=== PATIENT | male | born 1955 | race Caucasian/White ===

== ENCOUNTER → 2023-12-23 07:37 | Outpatient (REF) | payer OTHER, SELFPAY | LOC: DHCBC/DCA 07:37 | PROVIDERS: ATTENDING PHYSICIAN Internal Medicine Cardiovascular Disease; FAMILY PHYSICIAN Family Medicine | DX: I48.91 Unspecified atrial fibrillation (principal); R07.9 Chest pain, unspecified | CPT/HCPCS: 78452; 93017; A9500; J2785 ==

== ENCOUNTER → 2023-12-25 10:01 | Outpatient (REF) | payer OTHER, SELFPAY | LOC: RCS 10:01 | PROVIDERS: ATTENDING PHYSICIAN Internal Medicine Cardiovascular Disease; FAMILY PHYSICIAN Family Medicine | DX: I48.91 Unspecified atrial fibrillation (principal) | CPT/HCPCS: 93306 ==

== ENCOUNTER → 2024-04-30 08:41 | Outpatient (REF) | payer OTHER, SELFPAY | LOC: RAD 08:41 | PROVIDERS: ATTENDING PHYSICIAN Internal Medicine Cardiovascular Disease; FAMILY PHYSICIAN Family Medicine | DX: Z86.73 Personal history of transient ischemic attack (TIA), and cerebral infarction without residual deficits (principal) | CPT/HCPCS: 93880 ==

== ENCOUNTER 2025-02-03 09:01 | Day surgery (SDC) | payer OTHER, SELFPAY ==
[2025-02-03] VITALS (17 sets, daily range): BP systolic 118–147; BP diastolic 73–101; BMI 27.2
--- NOTE | 2025-02-03 10:33 | PTCARENOTE ---
ASA 81mg x2 (162mg) PO given at 1000 pre-procedure by this nurse.
--- NOTE | 2025-02-03 10:36 | PTCARENOTE ---
Aspirin 81mg x2 (162mg) PO given pre procedure by this nurse.
--- NOTE | 2025-02-03 11:12 | ITS.CL.CATH ---
Consumer Sales Representative - Catheterization
Cardiac Catheterization
Procedure Report:
LEFT HEART CATHETERIZATION
Date of Procedure: February 03, 2025
Referring: Fanny Payne.
PROCEDURES:
1. Left heart catheterization, coronary angiogram.
2. Moderate sedation.
INDICATION: Concern for unstable angina
ACCESS: Right radial artery, 6Fr. sheath, under US guidance.
HEMODYNAMICS : (mmHg)
AO (s/d) : 120/70
LVEDP : 16
No significant gradient across the aortic valve to suggest aortic stenosis.
CORONARY FINDINGS
Dominance: Right
Left Main Trunk (LMT): Large caliber vessel that gives rise to the LAD and LCx branches and is free of angiographic disease.
Left Anterior Descending Artery (LAD): Large caliber vessel that gives off 2 major diagonal branches as it courses along the anterior inter-ventricular groove before wrapping around the cardiac apex. There is mild diffuse atherosclerotic plaque in
the midportion. Otherwise there is minimal luminal irregularities.
Left Circumflex Artery (LCx): Large caliber vessel that gives off 2 major obtuse marginal (OM) branches as it courses along the atrio-ventricular (AV) groove. The LCx and its branches are free of angiographic disease.
Right Coronary Artery (RCA): Large caliber dominant vessel that gives rise to the posterior descending artery (RPDA) and postero-lateral ventricular (RPLV) branches distally. There is mild diffuse atherosclerotic plaque.
SEDATION: 17 minutes of procedural sedation was utilized. IV Midazolam and IV Fentanyl were administered. An independent medical laboratory manager was present to assist with and help manage the patient's level of consciousness and physiologic status.
RADIATION SUMMARY: Fluoro Time (min): 2.1, Dose (mGy): 287.26, DAP (Gy.cm2) : 19.9
Closure Device: There were no immediate intra-procedural complications. The sheath was pulled in the irrigation laborer and a vascular-band applied to the right wrist for radial artery hemostasis using the patent hemostasis technique.
CONCLUSIONS
1. No obstructive coronary artery disease.
2. LVEDP is 16mmHg.
RECOMMENDATIONS
1. Wean radial band per protocol. Monitor right hand perfusion and for bleeding from the radial site following removal of the vascular-band following trans-radial access.
2. Continue aggressive medical therapy and risk factor modification for secondary CAD prevention.
3. Hydrate with normal saline to mitigate the risk of contrast-induced acute kidney injury.
4. Follow-up with Dr. Hailee Rubio.
Luz Cordova MD, [facility], [facility]
Copy to: Fanny Payne.
== END 2025-02-03 14:10 | disposition home or self-care (01) ==
LOC: CATH 09:01
PROVIDERS: ATTENDING PHYSICIAN Internal Medicine Interventional Cardiology; FAMILY PHYSICIAN Neurological Surgery; OTHER PHYSICIAN Internal Medicine Cardiovascular Disease
DX: I25.10 Atherosclerotic heart disease of native coronary artery without angina pectoris (principal); Z86.73 Personal history of transient ischemic attack (TIA), and cerebral infarction without residual deficits; Z79.01 Long term (current) use of anticoagulants; Z79.899 Other long term (current) drug therapy; I48.19 Other persistent atrial fibrillation; Q21.12 Patent foramen ovale; E78.5 Hyperlipidemia, unspecified; I70.0 Atherosclerosis of aorta
CPT/HCPCS: 99152; 93458; C1894; Q9967

== ENCOUNTER 2025-02-26 10:39 | Inpatient (IN) | payer OTHER, SELFPAY ==
[2025-02-25 12:53] VITALS: BP 155/94
[2025-02-25 13:55] VITALS: BMI 26.0
[2025-02-25 14:20] VITALS: BP 135/94
--- NOTE | 2025-02-25 14:31 | ED.SKININJ ---
HPI-Injury
General
Chief Complaint: Skin Problem
Time Seen by Provider: 02/25/25 14:23
History of Present Illness-Injury
Initial Injury comments:
69-year-old male with past medical history of atrial fibrillation and hypertension here today for a suspected skin infection along his left lower extremity. He reports approximately 5 to 6 days of pain, redness, and swelling along his distal left
lower extremity. Symptoms started after the patient was walking in the park. He believes he was either bit by something or brushed up against something that caused the above symptoms. He has had associated redness, swelling, and pain. No fevers.
No drainage. He is not diabetic.
Past History
Past History
ED Past Medical History: CVA and Other
ED Past Surgical History: Orthopedic and Tonsilectomy
Social History
Tobacco: Former smoker
Alcohol: None
Personal:
Living: with family
Family History
Family History: Other
Review of Systems
Review of Systems
All Other Systems: ROS reviewed and negative except as documented in HPI and ROS
Phy Exam
Physical Exam
Physical Exam:
GENERAL: Alert , in no apparent distress
EYE: pupils equal and reactive
NECK: Supple
SKIN: Warm and dry, skin intact. moderate amount of swelling, erythema, and tenderness noted along the distal left lower extremity
MUSCULOSKELETAL: No edema, well perfused.
PSYCH: Normal and appropriate interaction.
Sepsis
Sepsis Screening
Sepsis Assessment: Sepsis Ruled Out
Sepsis Screen
Sepsis Screen: Sepsis Ruled Out
Date: 02/25/25
Time: 16:20
Course
Orders/Labs/Results
Orders:
Orders
02/25/25 14:30
CR Leg Tibia/fibula Left 2 Vw Urgent
Comment:
Reason For Exam: cellulitis
02/25/25 14:48
Basic Metabolic Panel Urgent
CRP [C-Reactive Protein] Urgent
Complete Blood Count/With Diff Urgent
ESR [Erythrocyte Sed Rate] Urgent
Lactic Acid Urgent
02/25/25 16:14
Vancomycin [Vancocin] 2,000 mg 0.9% Sodium Chloride 500 ml [Nss] 500 ml IV NOW
Abnormal Lab Results
02/25/25
14:48
WBC 15.4 H 10^3/uL
(4.8-10.8)
RBC 4.21 L 10^6/uL
(4.70-6.10)
Hgb 12.9 L g/dL
(13.0-18.0)
Hct 38.8 L %
(39.0-52.0)
Abs Immat Gran (auto) 0.1 H 10^3/uL
(0-0.05)
Absolute Neuts (auto) 12.6 H 10^3/uL
(1.4-6.5)
Absolute Lymphs (auto) 0.9 L 10^3/uL
(1.2-3.4)
Absolute Monos (auto) 1.7 H 10^3/uL
(0.1-0.6)
Neutrophils % 82.0 H %
(42.2-75.2)
Lymphocytes % 5.9 L %
(20.5-51.1)
Monocytes % 11.0 H %
(1.7-9.3)
C-Reactive Protein 157.20 H mg/L
(0.0-10.00)
02/25/25 14:48
02/25/25 14:48
Vital Signs
Initial and Last Documented VS:
Initial Vital Signs
Temp Pulse Resp BP Pulse Ox
97.8 F 86 16 155/94 98
02/25/25 12:53 02/25/25 12:53 02/25/25 12:53 02/25/25 12:53 02/25/25 12:53
Last Documented Vital Signs
Temp Pulse Resp BP Pulse Ox
97.8 F 84 16 135/94 97
02/25/25 12:53 02/25/25 14:00 02/25/25 14:00 02/25/25 14:20 02/25/25 14:33
MDM/Problems Addressed
Differential Diagnosis Includes:
69-year-old male with past medical history of atrial fibrillation and hypertension here today for a suspected skin infection along his left lower extremity. Overall, patient appears well. Vitals remarkable for an elevated blood pressure. Physical
examination described above. On examination the patient has a moderate amount of swelling, erythema, and tenderness noted along the distal left lower extremity. Symptoms originate around the location of the foot and extend up to the mid calf.
Patient's pulses are not palpable however are dopplerable. There is no pain out of proportion to physical exam findings. There is edema that is pitting in nature noted. Compartments are soft throughout. Sensation and motor intact throughout. I
am concerned for infection given findings and symptoms. Will initiate workup.
02/25/2025 16:18: Screening labs reveal leukocytosis to 15.4. There is anemia with a hemoglobin of 12.9. There is elevation in CRP. X-ray negative aside from swelling. Findings consistent with cellulitis. Given age and extent of infection will
initiate antibiotic therapy with vancomycin. Plan for admission.
*Pulse Oximetry
SaO2: 97
Oxygen Mode of Delivery: Room air
Patient hypoxic: no
*Critical Care Note
Total Time (30-74mins, 75-104mins- exclusive of procedures): Not Applicable
ED Attending Note
-
Portions of this chart may have been created with voice recognition software.� Occasional wrong word or��sound alike� substitutions may have occurred due to the inherent limitations of voice recognition software.
Discharge Plan
Departure
Patient Disposition: Admit
Date of Disposition: 02/25/25
Time of Disposition: 16:15
Admit to: Med/Surg
Admit to doctor: Kimberley Gonzalez
Presentation/result/management discussed w/ accepting MD/DO: Hospitalist
Patient with high blood pressure during this ER visit?: Yes
Condition: Fair
Covid-19: Not Applicable
Discharge Problem:
Cellulitis of left leg
Prescriptions:
No Action
lisinopril 20 mg Tablet
20 mg PO DAILY
oxycodone-acetaminophen 10-325 mg Tablet
1 tab PO Q8H PRN (Reason: pain)
metoprolol succinate 25 mg Tablet Extended Release 24 Hr
12.5 mg PO QPM
levothyroxine 112 mcg Tablet
112 mcg PO DAILY
ezetimibe 10 mg Tablet
10 mg PO QPM
omega 1-kiy-ggz-fish oil [Fish Oil] 1,000 (120-180) mg Capsule
2 cap PO QPM
Eliquis 5 mg Tablet
5 mg PO BID
Referrals:
Walter Whatley DO [Family Provider, Family Practice]
Interventions
Interventions:
*Risk Screen - Suicide Last Done: 02/25/25 12:53
*General Assessment Last Done: 02/25/25 13:56
*Neglect/Abuse Screening Last Done: 02/25/25 12:53
*ED- Fall Risk Assessment Last Done: 02/25/25 13:56
*ED COVID-19 Vaccine History Last Done: 02/25/25 13:56
ED-Skin Assessment Last Done: 02/25/25 13:43
Discharge Date and Time
Print Language: MOLDOVAN
[2025-02-25 14:59] LABS: Hematocrit 38.8 % (39.0-52.0); Hemoglobin 12.9 g/dL (13.0-18.0); Mean Corp Hgb Conc. 33.2 g/dL (33.0-37.0); Mean Corpuscular Volume 92.2 fL (80.0-94.0); Nucleated Red Blood Cells % 0 % (-); Platelet Count 151 10^3/uL (130-400); Red Cell Dist. Width 13.5 % (11.5-14.5)
[2025-02-25 15:13] LABS: Blood Urea Nitrogen 13 mg/dl (9-20); Calcium 9.4 mg/dl (8.4-10.2); Carbon Dioxide 23 mmol/L (22-30); Chloride 105 mmol/L (98-107); Estimated Creatinine Clearance 79 ml/min; Glucose 95 mg/dl (70-99); Potassium 4.1 mmol/L (3.5-5.1); Sodium 137 mmol/L (135-145); eGFR > 60.00
[2025-02-25 15:26] LABS: C-Reactive Protein 157.20 mg/L (0.0-10.00)
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
[2025-02-25] MEDS: VANCOCIN 540 MG IV (17:21)
[2025-02-25 19:20] VITALS: BP 169/109; BMI 25.2
[2025-02-25] MEDS: TOPROL XL 12.5 MG PO (20:05)
[2025-02-25] MEDS: ELIQUIS 5 MG PO (20:09)
[2025-02-25] MEDS: ROXICODONE 10 MG PO ×2 (20:09→22:58)
[2025-02-25] MEDS: TYLENOL 325 MG PO ×2 (20:10→22:58)
[2025-02-25] MEDS: ANCEF 5 IV (21:20)
[2025-02-25] MEDS: ZETIA 10 MG PO (21:22)
[2025-02-25 23:00] VITALS: BP 154/91
[2025-02-25] MEDS: TYLENOL 650 MG PO (23:06)
[2025-02-26 03:00] VITALS: BP 151/95
[2025-02-26] MEDS: ANCEF 5 IV ×3 (04:35→19:56)
[2025-02-26] MEDS: SYNTHROID 112 MCG PO (05:19)
[2025-02-26 06:00] VITALS: BMI 25.3
[2025-02-26 07:21] LABS: Hematocrit 38.5 % (39.0-52.0); Hemoglobin 12.8 g/dL (13.0-18.0); Mean Corp Hgb Conc. 33.2 g/dL (33.0-37.0); Mean Corpuscular Volume 91.9 fL (80.0-94.0); Platelet Count 150 10^3/uL (130-400); Red Cell Dist. Width 13.5 % (11.5-14.5)
[2025-02-26 07:32] VITALS: BP 150/101
[2025-02-26] MEDS: ROXICODONE 10 MG PO ×4 (07:48→21:16)
[2025-02-26] MEDS: ZESTRIL 10 MG PO (07:48)
[2025-02-26] MEDS: TYLENOL 325 MG PO ×4 (07:48→21:16)
[2025-02-26] MEDS: ELIQUIS 5 MG PO ×2 (07:48→19:56)
[2025-02-26 07:50] VITALS: BMI 25.3
[2025-02-26 07:57] LABS: Blood Urea Nitrogen 11 mg/dl (9-20); Calcium 9.2 mg/dl (8.4-10.2); Carbon Dioxide 24 mmol/L (22-30); Chloride 103 mmol/L (98-107); Estimated Creatinine Clearance 87 ml/min; Glucose 103 mg/dl (70-99); Potassium 3.9 mmol/L (3.5-5.1); Sodium 135 mmol/L (135-145); eGFR > 60.00
--- NOTE | 2025-02-26 08:14 | W.PN.UPDATE ---
Update Note
Progress Note Update
I saw and evaluated the patient. I reviewed the resident�s note and agree with findings and plan as documented in the resident�s note.
Gen: NAD, AAOx3.
Eyes: EOMI, PERRLA, no scleral icterus.
Neck: supple.
CV: irreg/irreg, +S1/S2, no m/r/g.
Resp: CTAB, no rales, wheezes, or rhonchi.
Abd: +BS, soft, NT, ND, visible abdominal aortic pulsations
Skin: L leg cellulitis
Neuro: CN 2-12 intact, non-focal.
Psych: Normal mood and affect.
L Tibia/Fibulia x-ray: No acute osseous abnormality. Mild soft tissue swelling. Moderate degenerative changes of the knee with chondrocalcinosis.
LLE cellulitis:
-cont Ancef
-worsening leukocytosis
Abdominal aortic pulsations:
-check Abd aortic U/S
Other problems:
PAF: cont Eliquis/BB
Essential HTN: cont ACEi
HLD: cont Zetia
Hypothyroidism: cont levoxyl
FULL/Eliquis
--- NOTE | 2025-02-26 10:43 | W.PN.HOSP.TC ---
Today's Communication/Plan
-
Continue to monitor LLE cellutis site
Follow fever/wbc curve
Continue antibiotics. Cefazolin Day #2
Await abdominal LAVERN results
Assessment / Plan
Assessment / Plan
69-year-old male with past medical history of paroxysmal atrial fibrillation, hypertension, hyperlipidemia, and hypothyroid presented for left lower leg swelling, redness and pain.
Patient reports that he smoked before, but only for 1 month years ago.
#LLE cellulitis
regressing from marked line, improvement in pain 3/10 PS, (+) fever
WBC 15.4--> 18.0, CRP 157.20
Lf Tibia/Fibulia x-ray: No acute osseous abnormality. Mild soft tissue swelling.
������������������������������
- IV Cefazolin day #2
-pain management (roxicodone, tylenol)
-monitor fever and WBC curve
-continue to monitor site for expanding symptoms, development of blisters, pus, open sores, skin discoloration, loss of sensation.
#paroxysmal atrial fibrillation
- Continue SENIOR ELECTRICAL CONTROLS ENGINEER Apixaban 5 mg p.o. twice daily
- Contiune SENIOR ELECTRICAL CONTROLS ENGINEER Metoprolol 12.5mg PO QPM
#Suspect AAA
(+) abdominal pulsations, (-) bruits, brief smoking history
-abdominal aortic ultrasound
#hypertension
- continue SENIOR ELECTRICAL CONTROLS ENGINEER lisinopril
#hyperlipidemia
- continue SENIOR ELECTRICAL CONTROLS ENGINEER ezetimibe
#hypothyroid
- continue SENIOR ELECTRICAL CONTROLS ENGINEER levothyroxine
Anticipated Discharge: 24 - 48 hours
Subjective/Interval History
-
Date of Service: February 26, 2025
Patient reports that he still has some pain in his left lower leg, but much improved from yesterday 3/10 PS. He currently has a fever, but denies chills, abdominal pain,nausea, vomiting, and lightheadedness. He also noticed new onset urinary
urgency, but denies dysuria or frequency. He also denies shortness of breath, and chest pain.
Objective Data
-
Labs:
Laboratory Results
02/26/25
06:59
WBC 18.0 H
Hgb 12.8 L
Hct 38.5 L
Plt Count 150
Sodium 135
Potassium 3.9
Chloride 103
Carbon Dioxide 24
BUN 11
Creatinine 0.8
Glucose 103 H
Calcium 9.2
Vital Signs:
Vital Signs
Temp Pulse Resp BP Pulse Ox
98.2 F 91 18 150/101 99
02/26/25 07:32 02/26/25 07:32 02/26/25 07:32 02/26/25 07:32 02/26/25 07:50
I&O
02/25/25 02/26/25 02/27/25
06:59 06:59 06:59
Output Total 325 / 325
Balance -325 / -325
Review of Systems
-
History Source: Patient
Constitutional: Reports Fever and Fatigue; Denies Chills
EENT: Reports No Symptoms Reported
Respiratory: Denies Cough or Trouble Breathing
Cardiac: Denies Chest Pain, Palpitations or Syncope
Abdomen/GI: Denies Abdominal Pain, Nausea, Vomiting or Diarrhea
Genitourinary: Reports Urgency; Denies Dysuria, Frequency, Flank Pain, Incontinence or Difficulty Voiding
Musculoskeletal: Reports Other (favors left leg when walking, claims that right leg is shorter than the other)
Neuro: Reports Headache (mild); Denies Ataxia or Lightheadedness
Physical Exam
-
General: No Apparent Distress and Conversant
HEENT: Normocephalic
Respiratory: Clear to Auscultation
Cardiac: Regular Rhythm and S1/S2
GI: Soft, Nontender, Nondistended, Normal Bowel Sounds and Other ((+) pulsations, (-) bruits)
Musculoskeletal: No Clubbing, No Cyanosis and Edema, Left Lower Extrem (Left lower leg extending to digits)
Skin: Other (Erythematous, warm, and edematous extending from left lower leg to the digits. Redness regressed from previously demarcated pen line. No exudate, or ulceration noted. 1cm, linear dry wound seen on foot dorsum.)
Neuro: AO x 3, Central Nerve's Intact and Other
Psych: Calm
--- NOTE | 2025-02-26 11:50 | PTCARENOTE ---
02/26- Patient reports that he eats well at home but just 'doesn't feel like eating here.' He states he has nothing against the food, but he has lost weight since being in here. He states he lost 8lbs in the past 2 weeks. This RN advised he has
only been in the hospital for less than 1 day, this stay. Patient then stated he knows, and he eats well at home. Then he states he can eat just fine but ~1hour or so after eating, he'll begin to cough then dry heave from the coughing. Abd
continues to be soft/NT/ND with +BSX4. Patient just received Abd US to check for Aortic pulsation. Skin=warm/pink/dry. Educated on diet, techniques to maintain nutrition and avoid nausea/dry heaving and S/S to immediately report to
Nurse/Physician. He verbalized understanding.
[2025-02-26 12:01] VITALS: BP 159/96
[2025-02-26] MEDS: LOPRESSOR 5 MG IV (12:39)
[2025-02-26 15:15] VITALS: BP 142/84
--- NOTE | 2025-02-26 16:11 | CM ---
Patient seen bedside, initial assessment completed. Patient is a 69-year-old male with past medical history significant for paroxysmal atrial fibrillation, hypertension, hyperlipidemia and hypothyroid who presented to [facility] ED for evaluation of left
lower extremity erythema and edema.
Patient resides w/ significant other in a 2nd floor apartment at [facility]. 10-12 steps to enter apartment, no elevator access. Patient is independent w/ ambulation, does not use any devices. Patient has RW and cane but does not use. Patient
has a raised toilet seat, tub grab bar and shower stool. Denies SNF/HC hx.
Address, point of contact and insurance verified
PCP: Walter Whatley
Pharmacy: [facility]
Patient w/ fever, continue IV abx
Plan: Home, no needs anticipated
[2025-02-26] MEDS: ZETIA 10 MG PO (17:17)
[2025-02-26] MEDS: TOPROL XL 12.5 MG PO (17:19)
[2025-02-26 19:00] VITALS: BP 153/96
[2025-02-26 23:00] VITALS: BP 159/85
[2025-02-27] MEDS: LOPRESSOR 5 MG IV (02:52)
[2025-02-27 03:00] VITALS: BP 167/112
[2025-02-27] MEDS: ANCEF 5 IV (03:02)
--- NOTE | 2025-02-27 03:47 | PTCARENOTE ---
pt is anxious and upset over hospital sounds related to another patient care, walking in to other patient's room and began arguing with other pt. pt is paranoid and making crass, lewd, and crude comments to nursing. pt stated towards nursing staff
'who is sucking and fucking out there; to calm down the patients'. attempted to redirect patient, informed and updated charge nurse and watch manufacturing supervisor on patients inappropriate behaviors and comments. Pt HR noted to also be in the 130's, RR 20 BP
167/112. Lopressor 5 mg IV PRN administered. RECREATION PROGRAM SPECIALIST was made aware. Plan of care ongoing.
[2025-02-27 04:29] VITALS: BMI 25.0
[2025-02-27] MEDS: SYNTHROID 112 MCG PO (06:20)
[2025-02-27 07:35] VITALS: BP 168/117
[2025-02-27 07:49] LABS: Hematocrit 36.6 % (39.0-52.0); Hemoglobin 12.6 g/dL (13.0-18.0); Mean Corp Hgb Conc. 34.4 g/dL (33.0-37.0); Mean Corpuscular Volume 90.4 fL (80.0-94.0); Nucleated Red Blood Cells % 0 % (-); Platelet Count 154 10^3/uL (130-400); Red Cell Dist. Width 13.2 % (11.5-14.5)
[2025-02-27 08:13] LABS: Blood Urea Nitrogen 13 mg/dl (9-20); Calcium 9.4 mg/dl (8.4-10.2); Carbon Dioxide 23 mmol/L (22-30); Chloride 103 mmol/L (98-107); Estimated Creatinine Clearance 100 ml/min; Glucose 105 mg/dl (70-99); Potassium 4.0 mmol/L (3.5-5.1); Sodium 133 mmol/L (135-145); eGFR > 60.00
[2025-02-27] MEDS: TYLENOL 325 MG PO ×4 (08:40→21:48)
[2025-02-27] MEDS: ZESTRIL 10 MG PO (08:40)
[2025-02-27] MEDS: ROXICODONE 10 MG PO ×4 (08:40→21:49)
[2025-02-27] MEDS: ELIQUIS 5 MG PO ×2 (08:40→19:27)
--- NOTE | 2025-02-27 08:55 | W.PN.HOSP.TC ---
Addendum entered and electronically signed by Leatha Murry MD 02/27/25 17:25:
I saw and evaluated the patient independently. I reviewed the resident�s note and agree with findings and plan as documented by Dr. Elliott.
GENERAL: well developed, well nourished, male in no apparent distress
HEENT: NC/AT
HEART: irreg irreg
LUNGS : clear to auscultation bilaterally
ABDOM: soft, nontender, nondistended, + bowel sounds
EXT: no cyanosis, clubbing-- right leg swollen, red, warm (leg was outlined prior to him taking a shower)
NEUROLOGIC: grossly intact
LLE cellulitis--likely from small scab on dorsum of foot--redness spreading past the outline BUT he showered before I could see it--will increase ancef to 2gm IV Q8H as pt was febrile as well yesterday with worsening WBC count
Abdominal aortic pulsations---Abd aortic U/S shows Abdominal aortic ectasia 2.7cm in proximal abdominal aorta--surveillance as outpatient
Paroxysmal afib-- cont Eliquis/BB
Essential HTN--cont ACEi
HLD-- cont Zetia
Hypothyroidism--cont levoxyl
FULL CODE
Eliquis
Original Note:
Today's Communication/Plan
-
Progression of erythema and swelling past demarcated line in LLE cellulitis site
Increased 2g IV Cefazolin.
ECG pending
Monitor blood pressure
Continue to monitor LLE cellulitis site
Follow fever/wbc curve
Assessment / Plan
Assessment / Plan
69-year-old male with past medical history of paroxysmal atrial fibrillation, hypertension, hyperlipidemia, and hypothyroid presented for left lower leg swelling, redness and pain.
Patient reports that he smoked before, but only for 1 month years ago.
#LLE cellulitis
going beyond marked line, improvement in pain, (+) fever, sustained tachycardia
WBC 15.4--> 18.0--> 13.9 , CRP 157.20
Lf Tibia/Fibulia x-ray: No acute osseous abnormality. Mild soft tissue swelling.
Blood culture prelim: no growth
������������������������������
- increased to IV Cefazolin 2g, may consider changing to Vancomycin to cover MRSA if progression continues. Although MRSA swab (-), improvement noted when patient was given vancomycin. For now, progression may be related to underdosing of
antibiotic.
-pain management (roxicodone, tylenol)
-monitor fever and WBC curve
-continue to monitor site for expanding symptoms, development of blisters, pus, open sores, skin discoloration, loss of sensation.
#paroxysmal atrial fibrillation
-on telemetry
- Continue DIRECTOR OF NATIONAL SALES Apixaban 5 mg p.o. twice daily
- Contiune [employer]OR [employer] SALES Metoprolol 12.5mg PO QPM
#Aortic Ectasia
(+) abdominal pulsations, (-) bruits, brief smoking history
-abdominal aortic ultrasound - Abdominal aortic ectasia 2.7cm in proximal abdominal aorta
-surveillance as outpatient
#hypertension
- continue DIRECTOR [employer]ATIONAL [employer]ES lisinopril
#hyperlipidemia
- continue DIRECTOR OF [employer]ATIONAL SALES ezetimibe
#hypothyroid
- continue DIRECTOR OF [employer]ATIONAL SALES levothyroxine
DVT prophylaxis: Eliquis
Full code
Anticipated Discharge: > 48 hours
Subjective/Interval History
-
Date of Service: February 27, 2025
The patient had a fever last night, denies chills. He reports that pain at his lower leg is feeling better than yesterday. He denies loss of sensation, and paralysis at the site. He denies chest pain, shortness of breath, and palpitation.
Objective Data
-
Labs:
Laboratory Results
02/27/25
07:32
WBC 13.9 H
Hgb 12.6 L
Hct 36.6 L
Plt Count 154
Sodium 133 L
Potassium 4.0
Chloride 103
Carbon Dioxide 23
BUN 13
Creatinine 0.7
Glucose 105 H
Calcium 9.4
Vital Signs:
Vital Signs
Temp Pulse Resp BP Pulse Ox
98.2 F 106 18 168/117 97
02/27/25 07:35 02/27/25 08:40 02/27/25 07:35 02/27/25 08:40 02/27/25 07:35
I&O
02/26/25 02/27/25 02/28/25
06:59 06:59 06:59
Intake Total 600 / 600
Output Total 325 / 325
Balance -325 / -325 600 / 600
Review of Systems
-
History Source: Patient
Constitutional: Reports Fever and Fatigue; Denies Chills
EENT: Reports No Symptoms Reported
Respiratory: Denies Cough or Trouble Breathing
Cardiac: Denies Chest Pain, Palpitations or Syncope
Abdomen/GI: Denies Abdominal Pain, Nausea, Vomiting or Diarrhea
Genitourinary: Denies Dysuria, Frequency, Flank Pain, Incontinence or Difficulty Voiding
Musculoskeletal: Reports Other (favors left leg when walking, claims that right leg is shorter than the other)
Neuro: Denies Ataxia or Lightheadedness
Physical Exam
-
General: No Apparent Distress and Conversant
HEENT: Normocephalic
Respiratory: Clear to Auscultation
Cardiac: Regular Rhythm
GI: Soft, Nontender, Nondistended, Normal Bowel Sounds and Other ((+) pulsations, (-) bruits)
Musculoskeletal: No Clubbing, No Cyanosis and Edema, Left Lower Extrem (Left lower leg extending to digits)
Skin: Other (Erythematous, warm, and edematous extending from left lower leg to the digits. Erythema and swelling progressed demarcated pen line. No exudate, or ulceration noted. 1cm, linear dry wound seen on foot dorsum.)
Neuro: AO x 3, Central Nerve's Intact and Other
Psych: Calm
[2025-02-27 11:42] VITALS: BP 137/90
[2025-02-27] MEDS: ANCEF IV (13:13)
--- NOTE | 2025-02-27 14:24 | PTCARENOTE ---
Assumed care of pt from previous nurse. Pt denies pain to LLE. LLE red and warm. Pt call last is within reach, pt rings melissa. will cont to monitor.
[2025-02-27 15:35] VITALS: BP 141/96
[2025-02-27] MEDS: ANCEF 10 IV ×2 (15:42→21:48)
[2025-02-27] MEDS: ZETIA 10 MG PO (18:05)
[2025-02-27] MEDS: TOPROL XL 12.5 MG PO (18:08)
[2025-02-27 19:00] VITALS: BP 144/95
[2025-02-27 23:00] VITALS: BP 168/109
[2025-02-28 03:00] VITALS: BP 131/84
[2025-02-28 03:56] VITALS: BMI 25.6
[2025-02-28] MEDS: ANCEF 10 IV ×3 (06:02→21:15)
[2025-02-28] MEDS: SYNTHROID 112 MCG PO (06:02)
[2025-02-28 07:32] VITALS: BP 138/94
--- NOTE | 2025-02-28 08:32 | W.PN.HOSP.TC ---
Addendum entered and electronically signed by Leatha Murry MD 02/28/25 12:56:
I saw and evaluated the patient independently. I reviewed the resident�s note and agree with findings and plan as documented by Dr. Elliott.
GENERAL: well developed, well nourished, male in no apparent distress
HEENT: NC/AT
HEART: irreg irreg
LUNGS : clear to auscultation bilaterally
ABDOM: soft, nontender, nondistended, + bowel sounds
EXT: no cyanosis, clubbing-- right leg swollen, red, warm (leg was outlined prior to him taking a shower)--re-outlined and now much improved
NEUROLOGIC: grossly intact
LLE cellulitis--likely from small scab on dorsum of foot--redness spreading past the outline BUT he showered before I could see it--will increase ancef to 2gm IV Q8H --much improved--keep on IVs today, can d/c on higher outpt Keflex dose at d/c
Abdominal aortic pulsations---Abd aortic U/S shows Abdominal aortic ectasia 2.7cm in proximal abdominal aorta--surveillance as outpatient
Paroxysmal afib-- cont Eliquis/BB--plan for CV/ablation next week with cards
Essential HTN--cont ACEi
HLD-- cont Zetia
Hypothyroidism--cont levoxyl
FULL CODE
Eliquis
Original Note:
Today's Communication/Plan
-
Regression of erythema and swelling past demarcated line in LLE cellulitis site
Continue 2g IV Cefazolin, likely discharging tomorrow and will continue on with Cephalexin 1000mg TID for 10 more days
Monitor blood pressure, Lopressor PRN
Continue to monitor LLE cellulitis site
Follow fever/wbc curve
Assessment / Plan
Assessment / Plan
69-year-old male with past medical history of paroxysmal atrial fibrillation, hypertension, hyperlipidemia, and hypothyroid presented for left lower leg swelling, redness and pain.
Patient reports that he smoked before, but only for 1 month years ago.
#LLE cellulitis
going beyond marked line, improvement in pain, (-) fever, (-) sustained tachycardia
WBC 15.4--> 18.0--> 13.9--> 8.1, CRP 157.20
Lf Tibia/Fibulia x-ray: No acute osseous abnormality. Mild soft tissue swelling.
Blood culture prelim: no growth
������������������������������
-continue IV Cefazolin 2g-->good response to increase in medication, will continue. Anticipate discharge tomorrow with Cephalexin 1000mg TID for 10 more days as outpatient.
-pain management (roxicodone, tylenol)
-monitor fever and WBC curve
-continue to monitor site for expanding symptoms, development of blisters, pus, open sores, skin discoloration, loss of sensation.
#paroxysmal atrial fibrillation
-cardiology appointment on 03/04, 03/05
-on telemetry
- Continue PATIENT RELATIONS COORDINATOR Apixaban 5 mg p.o. twice daily
- Contiune PATIENT RELATIONS COORDINATOR Metoprolol 12.5mg PO QPM
-ECG results pending
#Aortic Ectasia
(+) abdominal pulsations, (-) bruits, brief smoking history
-abdominal aortic ultrasound - Abdominal aortic ectasia 2.7cm in proximal abdominal aorta
-surveillance as outpatient
#hypertension
- continue PATIENT RELATIONS COORDINATOR lisinopril
#hyperlipidemia
- continue PATIENT RELATIONS COORDINATOR ezetimibe
#hypothyroid
- continue PATIENT RELATIONS COORDINATOR levothyroxine
DVT prophylaxis: Eliquis
Full code
Anticipated Discharge: Within 24 hours
Subjective/Interval History
-
Date of Service: February 28, 2025
The patient denies having fever or chills last night. The pain in his left lower leg is mild, about the same as yesterday. He denies loss of sensation or difficulty moving the affected site. He also did not palpitations, chest pain, weakness,
lightheadedness, headache and difficulty breathing.
Objective Data
-
Labs:
Laboratory Results
02/28/25
06:00
WBC Pending
Hgb Pending
Hct Pending
Plt Count Pending
Sodium Pending
Potassium Pending
Chloride Pending
Carbon Dioxide Pending
BUN Pending
Creatinine Pending
Glucose Pending
Calcium Pending
Vital Signs:
Vital Signs
Temp Pulse Resp BP Pulse Ox
98.4 F 73 18 131/84 99
02/28/25 03:00 02/28/25 03:00 02/28/25 03:00 02/28/25 03:00 02/28/25 03:00
I&O
02/27/25 02/28/25 03/01/25
06:59 06:59 06:59
Intake Total 600 / 600 960 / 960
Output Total 400 / 400
Balance 600 / 600 560 / 560
Review of Systems
-
History Source: Patient
Constitutional: Reports Fever and Fatigue; Denies Chills
EENT: Reports No Symptoms Reported
Respiratory: Denies Cough or Trouble Breathing
Cardiac: Denies Chest Pain, Palpitations or Syncope
Abdomen/GI: Denies Abdominal Pain, Nausea, Vomiting or Diarrhea
Genitourinary: Denies Dysuria, Frequency, Flank Pain, Incontinence or Difficulty Voiding
Musculoskeletal: Reports Other (favors left leg when walking, claims that right leg is shorter than the other)
Neuro: Denies Ataxia or Lightheadedness
Physical Exam
-
General: No Apparent Distress and Conversant
HEENT: Normocephalic
Respiratory: Clear to Auscultation
Cardiac: Regular Rhythm
GI: Soft, Nontender, Nondistended, Normal Bowel Sounds and Other ((+) pulsations, (-) bruits)
Musculoskeletal: No Clubbing, No Cyanosis and Edema, Left Lower Extrem (Left lower leg extending to digits)
Skin: Other (Erythematous, warm, and edematous extending from left lower leg to the digits. Erythema and swelling regressing from demarcated line. No exudate, or ulceration noted. 1cm, linear dry wound seen on foot dorsum.)
Neuro: AO x 3, Central Nerve's Intact and Other
Psych: Calm
[2025-02-28 09:01] LABS: Hematocrit 36.8 % (39.0-52.0); Hemoglobin 12.3 g/dL (13.0-18.0); Mean Corp Hgb Conc. 33.4 g/dL (33.0-37.0); Mean Corpuscular Volume 91.1 fL (80.0-94.0); Platelet Count 187 10^3/uL (130-400); Red Cell Dist. Width 13.2 % (11.5-14.5)
[2025-02-28] MEDS: ELIQUIS 5 MG PO ×2 (09:08→19:24)
[2025-02-28] MEDS: TYLENOL 325 MG PO ×4 (09:08→21:16)
[2025-02-28] MEDS: ROXICODONE 10 MG PO ×4 (09:08→21:15)
[2025-02-28] MEDS: ZESTRIL 10 MG PO (09:09)
[2025-02-28 09:22] LABS: Blood Urea Nitrogen 13 mg/dl (9-20); Calcium 8.8 mg/dl (8.4-10.2); Carbon Dioxide 28 mmol/L (22-30); Chloride 103 mmol/L (98-107); Estimated Creatinine Clearance 100 ml/min; Glucose 95 mg/dl (70-99); Potassium 3.6 mmol/L (3.5-5.1); Sodium 135 mmol/L (135-145); eGFR > 60.00
[2025-02-28 11:56] VITALS: BP 165/92
[2025-02-28 15:21] VITALS: BP 137/90
[2025-02-28] MEDS: TOPROL XL 12.5 MG PO (17:50)
[2025-02-28 19:00] VITALS: BP 146/91
[2025-02-28] MEDS: ZETIA 10 MG PO (19:24)
[2025-02-28 23:00] VITALS: BP 150/100
[2025-03-01 03:00] VITALS: BP 135/80
[2025-03-01 03:56] VITALS: BMI 24.9
[2025-03-01] MEDS: ANCEF 10 IV ×2 (05:52→14:18)
[2025-03-01] MEDS: SYNTHROID 112 MCG PO (05:52)
[2025-03-01 07:00] VITALS: BP 151/104
[2025-03-01 07:50] LABS: Hematocrit 39.8 % (39.0-52.0); Hemoglobin 13.2 g/dL (13.0-18.0); Mean Corp Hgb Conc. 33.2 g/dL (33.0-37.0); Mean Corpuscular Volume 89.8 fL (80.0-94.0); Platelet Count 224 10^3/uL (130-400); Red Cell Dist. Width 13.2 % (11.5-14.5)
[2025-03-01] MEDS: TYLENOL 325 MG PO ×2 (07:55→12:53)
[2025-03-01] MEDS: ROXICODONE 10 MG PO ×2 (07:55→12:53)
[2025-03-01] MEDS: ELIQUIS 5 MG PO (07:55)
[2025-03-01 08:23] LABS: ALT (SGPT) 79 U/L (0-50); AST (SGOT) 164 U/L (17-59); Albumin 3.7 g/dl (3.5-5.0); Alkaline Phosphatase 102 U/L (38-126); Blood Urea Nitrogen 11 mg/dl (9-20); Calcium 9.2 mg/dl (8.4-10.2); Carbon Dioxide 27 mmol/L (22-30); Chloride 101 mmol/L (98-107); Estimated Creatinine Clearance 117 ml/min; Glucose 109 mg/dl (70-99); Potassium 3.7 mmol/L (3.5-5.1); Sodium 135 mmol/L (135-145); Total Protein 6.9 g/dl (6.3-8.2); eGFR > 60.00
[2025-03-01] MEDS: ZESTRIL 10 MG PO (09:18)
[2025-03-01 11:00] VITALS: BP 164/105
[2025-03-01] MEDS: LOPRESSOR 5 MG IV (11:10)
--- NOTE | 2025-03-01 13:05 | CM ---
Chart reviewed. Patient will d/c home today
Met w/ patient and sig other bedside. IMM verbally reviewed, copy provided, copy on chart
No CM needs at this time
Plan: Home, no needs
[2025-03-01 14:00] VITALS: BP 160/96
--- NOTE | 2025-03-01 14:55 | W.PN.UPDATE ---
Update Note
Progress Note Update
DC home on Keflex 500mg Qid�
--- NOTE | 2025-03-01 16:01 | PN.CDI ---
CDI
- -
CDI:
Physician Documentation Request
Admit Date: 02/26/25 10:39
Dear Doctor Ramone,
Please review the following and provide your response in the progress notes.
Clinical Indicators:
Pt admitted with LLE cellulitis treated with IV cefazolin
On admission Tmax 102.4, HR 119, WBC 15.4
Please clarify which of the following most accurately describes the status of the patient's infection:
Sepsis-POA
- Systemic manifestations of infection, with 2 or more SIRS criteria which include:
- Fever >100.9 degrees F or hypothermia < 96.8 degrees F
- Leukocytosis - WBC > 12,000 or leukopenia - WBC < 4,000 or > 10% bands
- Tachycardia > 90 beats per minute
- Tachypnea - RR > 20 breaths per minute or PaCO2 , 32mmHg
Source: Merck Manual 2013
LLE cellulitis Without Systemic Illness
Other ( please specify)
Use of terms such as suspected, likely, concern for, or probable (associated with a specific diagnosis that is being evaluated, monitored, or treated as if it exists) are acceptable and can be coded in the inpatient setting, when documented at the
time of discharge.
Thank you,
Jenny Philippe RN
CDI Specialist
Index Text
Please use your independent medical judgment in providing your response.
--- NOTE | 2025-03-01 18:30 | W.PN.HOSP.TC ---
Addendum entered and electronically signed by Job Pack MD 03/03/25 12:30:
DC home on Keflex 500mg Qid�
Original Note:
Today's Communication/Plan
-
DC home on Keflex 500mg QID FOR 10 DAYS
Assessment / Plan
Assessment / Plan
69-year-old male with past medical history of paroxysmal atrial fibrillation, hypertension, hyperlipidemia, and hypothyroid presented for left lower leg swelling, redness and pain.
Patient reports that he smoked before, but only for 1 month years ago.
#LLE cellulitis
going beyond marked line, improvement in pain, (-) fever, (-) sustained tachycardia
WBC 15.4--> 18.0--> 13.9--> 8.1-->8.9 today CRP 157.20
Lf Tibia/Fibulia x-ray: No acute osseous abnormality. Mild soft tissue swelling.
Blood culture prelim: no growth
������������������������������
-Planned on discharge him home home on Keflex 500mg PO QID for 10 days
-continue to monitor site for expanding symptoms, development of blisters, pus, open sores, skin discoloration, loss of sensation.
-WBC and fever monitor
#paroxysmal atrial fibrillation
-cardiology appointment on 03/04, 03/05
-on telemetry
- Continue APPRENTICE [employer] Apixaban 5 mg p.o. twice daily
- Contiune APPRENTICE [employer] Metoprolol 12.5mg PO QPM
-ECG results pending
#Aortic Ectasia
(+) abdominal pulsations, (-) bruits, brief smoking history
-abdominal aortic ultrasound - Abdominal aortic ectasia 2.7cm in proximal abdominal aorta
-surveillance as outpatient
#hypertension
- continue APPRENTICE PAINTER NECKT[employer] lisinopril
#hyperlipidemia
- continue APPRENTICE PAINTER [employer]EC[employer] ezetimibe
#hypothyroid
- continue APPRENTICE PAINTER [employer]KT[employer] levothyroxine
DVT prophylaxis: Eliquis
Full code
Anticipated Discharge: Today
Subjective/Interval History
-
Date of Service: March 01, 2025
Patient was feeling good and his left leg swelling and erythemia have been improved,no oozing or itching. He denied leg pain, numbness or tinglings.
Objective Data
-
Labs:
Laboratory Results
03/01/25
07:34
WBC 8.9
Hgb 13.2
Hct 39.8
Plt Count 224
Sodium 135
Potassium 3.7
Chloride 101
Carbon Dioxide 27
BUN 11
Creatinine 0.6 L
Glucose 109 H
Calcium 9.2
Total Bilirubin 1.1
AST 164 H
ALT 79 H
Alkaline Phosphatase 102
Vital Signs:
Vital Signs
Temp Pulse Resp BP Pulse Ox
97.9 F 98 18 160/96 100
03/01/25 14:00 03/01/25 14:00 03/01/25 14:00 03/01/25 14:00 03/01/25 14:00
I&O
02/28/25 03/01/25 03/02/25
06:59 06:59 06:59
Intake Total 960 / 960 550 / 550
Output Total 400 / 400
Balance 560 / 560 550 / 550
Review of Systems
-
History Source: Patient
EENT: Reports No Symptoms Reported
Physical Exam
-
General: Well Developed and Well Nourished
HEENT: Normocephalic and Atraumatic
Respiratory: Clear to Auscultation
Cardiac: Regular Rhythm and S1/S2
Musculoskeletal: No Clubbing, No Cyanosis, Edema, Left Lower Extrem (erythema of left lower leg ) and Other (erythema of the left lower leg )
Psych: Calm
== END 2025-03-01 14:53 | disposition home or self-care (01) | DRG 603 ==
LOC: 4 WEST ACU 10:39
PROVIDERS: Nurse Practitioner Family; Physician Assistant; Specialist Research Data Abstracter/Coder; ADMITTING PHYSICIAN Hospitalist; ATTENDING PHYSICIAN Hospitalist; EMERGENCY PHYSICIAN Emergency Medicine; FAMILY PHYSICIAN Family Medicine
DX: L03.116 Cellulitis of left lower limb (principal); I48.0 Paroxysmal atrial fibrillation; E78.5 Hyperlipidemia, unspecified; I10 Essential (primary) hypertension; E03.9 Hypothyroidism, unspecified; M11.262 Other chondrocalcinosis, left knee; I77.819 Aortic ectasia, unspecified site; Z79.01 Long term (current) use of anticoagulants; Z86.73 Personal history of transient ischemic attack (TIA), and cerebral infarction without residual deficits; Z87.891 Personal history of nicotine dependence; Z79.899 Other long term (current) drug therapy; Z79.890 Hormone replacement therapy; Z88.8 Allergy status to other drugs, medicaments and biological substances
CPT/HCPCS: 73590; 76770; 80048; 80053; 83605; 85025; 85027; 85652; 86140; 87040; 87070; 93005; 96365; 96366; 99284

== ENCOUNTER 2025-03-09 07:00 | Emergency (ER) | payer OTHER, SELFPAY ==
[2025-03-09 07:07] VITALS: BP 156/101
--- NOTE | 2025-03-09 07:53 | ED.GENMED ---
History of Present Illness
General
Chief Complaint: Back Pain
Source: patient
Exam Limitations: none
Time Seen by Provider: 03/09/25 07:31
Nursing documentation reviewed up to this point in time: agreed with
History of Present Illness
History of Present Illness:
Patient is a 70-year-old male with history atrial fibrillation on Eliquis who presents to the emergency department for back pain. Patient states he woke up with pain yesterday morning which has been relatively constant. He describes the pain in
his central lower back without radiation into his legs. Pain is exacerbated with movement and walking. He denies any associated fever, chills, numbness/tingling or weakness in extremities. No bowel/bladder incontinence. No dysuria or hematuria.
No shortness of breath.
Patient states that he has a lengthy history of lower back pain with multiple spinal fusions. Pain is similar in quality however more severe today. No known inciting injury or trauma. He was able to walk out of his apartment into his car this
morning. He took a Percocet just prior to arrival.
Past History
Past History
ED Past Medical History: CVA and Other
ED Past Surgical History: Orthopedic and Tonsilectomy
Social History
Tobacco: Former smoker
Alcohol: None
Personal:
Living: with family
Family History
Family History: Other
Review of Systems
Review of Systems
Allergies reviewed?: Yes
All Other Systems: ROS reviewed and negative except as documented in HPI and ROS
Phy Exam
Physical Exam
Physical Exam:
Vitals: Hypertensive, otherwise vital signs stable. Afebrile
General: Patient is laying in bed comfortably, no acute distress
Skin: Warm and dry, no rashes or lesions. Well-healed old surgical scar from the lumbar spine.
Head: Normocephalic, atraumatic
Eyes: Sclera nonicteric. EOMs intact. No nystagmus.
Throat: Protecting airway
Neck: Normal ROM, no cervical spine tenderness, no meningismus
Cardiac: Regular rate and rhythm, no murmurs.
Pulm: Normal respiratory effort, no wheezes, rales, rhonchi heard on exam
Abdomen: Abdomen soft and nontender.
Back: No notable reproducible tenderness in back including midline spine. No rash or ecchymoses. Negative straight leg raise bilaterally
Extremities: No evidence of cyanosis or edema. Strength 5/5 in bilateral upper and lower extremities. Sensation intact.
Neuro: AAOx3. Grossly intact.
Psychiatric: Normal affect.
Course
Orders/Labs/Results
Orders:
Orders
03/09/25 07:42
Lidocaine [Lidocaine 4% Patch] 1 patch TOPICAL NOW STA
Apply Lidocaine patch(s) to:: lower back
Lumbar Spine Complete, 4 View [CR Lumbar Spine Comp Min 4 Vw*] Urgent
Comment:
Reason For Exam: lower back pain
03/09/25 07:53
Complete Blood Count/With Diff Urgent
03/09/25 09:24
Oxycodone [Roxicodone] 5 mg PO NOW STA
03/09/25 11:01
Urinalysis Reflex To Culture Urgent
Date Specimen was Collected: 03/09/25
Time Specimen was Collected: 10:08
Abnormal Lab Results
03/09/25
07:53
RBC 4.20 L 10^6/uL
(4.70-6.10)
Hgb 12.7 L g/dL
(13.0-18.0)
Hct 38.5 L %
(39.0-52.0)
Absolute Neuts (auto) 6.6 H 10^3/uL
(1.4-6.5)
Absolute Monos (auto) 0.8 H 10^3/uL
(0.1-0.6)
Lymphocytes % 13.6 L %
(20.5-51.1)
03/09/25 07:53
03/09/25 08:23
Vital Signs
Initial and Last Documented VS:
Initial Vital Signs
Temp Pulse Resp BP Pulse Ox
98.1 F 73 18 156/101 98
03/09/25 07:07 03/09/25 07:07 03/09/25 07:07 03/09/25 07:07 03/09/25 07:07
Last Documented Vital Signs
Temp Pulse Resp BP Pulse Ox
98.1 F 65 16 132/71 98
03/09/25 07:07 03/09/25 11:31 03/09/25 11:31 03/09/25 11:31 03/09/25 11:31
MDM/Problems Addressed
Differential Diagnosis Includes:
Not limited to: Muscle strain/spasm, compression fracture, spondylolysis, zoster, etc.
MDM/Problems Addressed:
70-year-old male presenting with lower back pain. Symptoms began yesterday and are exacerbated with movement. No associated infectious symptoms, urinary discomfort, or neurologic symptoms including numbness or weakness in lower extremities. No
saddle paresthesias or bowel/bladder incontinence. Patient does have history of similar chronic back pain. No recent trauma.
Vitals and physical exam as above. Patient resting comfortably, however with somewhat limited range of motion secondary to back pain. No reproducible midline tenderness or rash. He is neurologically intact without any findings concerning for
cauda equina. Will obtain basic labs, check UA. Will obtain x-ray of lumbar spine. Will treat symptoms supportively.
Update: X-rays do show degenerative changes of lumbar spine without any evidence of acute fracture. CBC without acute findings. Chemistry and UA yet to be obtained. Patient has not received oxycodone however states he is tired of waiting and
would like to be discharged home. He refuses to wait for repeat labs or urinalysis sample. He has been able to ambulate from the bed to his chair without assistance. He remains neurologically intact and nontoxic. Overall, suspicion is likely
acute on chronic musculoskeletal back pain. Relatively low suspicion for infectious process. Do not suspect vascular catastrophe. Advise follow-up with spine surgeon and continue supportive treatment at home. He has prescription for Percocet.
Strict return precautions discussed. Patient verbalized understanding.
Chronic conditions affecting care:
Atrial fibrillation on Eliquis, history of multiple lumbar fusions
Acute Exacerbation and/or Progression of Chronic Illness:
Acute exacerbation of chronic back pain
*Radiology
Radiology exam reviewed: radiology read reviewed
*Pulse Oximetry
SaO2: 98
Oxygen Mode of Delivery: Room air
Patient hypoxic: no
*EKG
Interpreted by ED Provider?: NA
*Consignee Interpretation
Rate: Consignee- N/A
*Critical Care Note
Total Time (30-74mins, 75-104mins- exclusive of procedures): Not Applicable
ED Attending Note
-
Portions of this chart may have been created with voice recognition software.� Occasional wrong word or��sound alike� substitutions may have occurred due to the inherent limitations of voice recognition software.
Discharge Plan
Departure
Patient Disposition: Home (Routine Discharge)
Date of Disposition: 03/09/25
Time of Disposition: 10:55
Patient with high blood pressure during this ER visit?: Yes
Condition: Good
Discharge Problem:
Back pain
Instructions: Low Back Pain (DC), BLOOD PRESSURE
Prescriptions:
No Action
lisinopril 20 mg Tablet
10 mg PO DAILY
oxycodone-acetaminophen 10-325 mg Tablet
1 tab PO QID
metoprolol succinate 25 mg Tablet Extended Release 24 Hr
12.5 mg PO QPM
levothyroxine 112 mcg Tablet
112 mcg PO DAILY
ezetimibe 10 mg Tablet
10 mg PO QPM
omega 1-dob-xnq-fish oil [Fish Oil] 1,000 (120-180) mg Capsule
1 cap PO DAILY
Eliquis 5 mg Tablet
5 mg PO BID
cephalexin 500 mg tablet
500 mg PO Q6H 10 Days Qty: 40 0RF
Referrals:
Walter Whatley DO [Family Provider, Family Practice]
Activity Restrictions/Additional Instructions:
RETURN TO THE EMERGENCY DEPARTMENT ANY FEVER, CHILLS, INTRACTABLE PAIN, NUMBNESS/TINGLING OR WEAKNESS IN EXTREMITIES, LOSS OF BOWEL/BLADDER CONTROL, PARESTHESIAS OF GROIN, AMBULATORY DYSFUNCTION, WORSENING IN CURRENT SYMPTOMS, OR ANY OTHER CONCERNS
- As discussed�your x-ray of your lower lumbar spine showed multiple degenerative changes without any evidence of acute fracture. You did leave prior to results of your chemistry panel and urinalysis.
- Please continue to take pain medications at home as prescribed by pain management at [facility]. You can apply lidocaine patches to affected area of your lower back which you can buy [id number] at the pharmacy.
-Please follow-up with your neurosurgeon at [facility] for further evaluation/management. You may require MRI imaging.
Monitor your symptoms closely and return to the emergency department with any acute worsening/new symptoms or any signs of infection/neurologic changes
Interventions
Interventions:
*Risk Screen - Suicide Last Done: 03/09/25 07:07
*General Assessment Last Done: 03/09/25 07:07
*Neglect/Abuse Screening Last Done: 03/09/25 11:31
*ED- Fall Risk Assessment Last Done: 03/09/25 11:31
*ED COVID-19 Vaccine History Last Done: 03/09/25 11:31
*ED Influenza Vaccine History Last Done: 03/09/25 11:31
*Nursing Disposition Last Done: 03/09/25 11:31
ED-Musculoskeletal Assessment Last Done: 03/09/25 07:46
Discharge Date and Time
Discharge Date/Time: 03/09/25 11:38
Print Language: MONEGASQUE
[2025-03-09] MEDS: LIDOCAINE 4% PATCH 1 PATCH TOPICAL (08:05)
[2025-03-09 08:17] LABS: Hematocrit 38.5 % (39.0-52.0); Hemoglobin 12.7 g/dL (13.0-18.0); Mean Corp Hgb Conc. 33.0 g/dL (33.0-37.0); Mean Corpuscular Volume 91.7 fL (80.0-94.0); Nucleated Red Blood Cells % 0 % (-); Platelet Count 250 10^3/uL (130-400); Red Cell Dist. Width 13.7 % (11.5-14.5)
[2025-03-09] MEDS: ROXICODONE 5 MG PO (11:00)
[2025-03-09 11:12] LABS: Urine Character Clear (Clear)
[2025-03-09 11:31] VITALS: BP 132/71
== END 2025-03-09 11:38 | disposition home or self-care (01) ==
LOC: EMR 07:00
PROVIDERS: Physician Assistant; EMERGENCY PHYSICIAN Student in an Organized Health Care Education/Training Program; FAMILY PHYSICIAN Family Medicine
DX: M54.9 Dorsalgia, unspecified (principal); M47.816 Spondylosis without myelopathy or radiculopathy, lumbar region; R03.0 Elevated blood-pressure reading, without diagnosis of hypertension; I48.91 Unspecified atrial fibrillation; Z79.01 Long term (current) use of anticoagulants; Z86.73 Personal history of transient ischemic attack (TIA), and cerebral infarction without residual deficits; Z87.891 Personal history of nicotine dependence
CPT/HCPCS: 99284; 72110; 81003; 85025

== ENCOUNTER 2025-03-15 08:24 | Emergency (ER) | payer OTHER, SELFPAY ==
[2025-03-15 08:26] VITALS: BP 139/84
--- NOTE | 2025-03-15 09:35 | ED.GENMED ---
History of Present Illness
General
Chief Complaint: Back Pain
Source: patient
Exam Limitations: none
Time Seen by Provider: 03/15/25 09:23
Nursing documentation reviewed up to this point in time: agreed with
History of Present Illness
History of Present Illness:
70-year-old male with a past medical history of atrial fibrillation on Eliquis, chronic back pain who presents to the emergency department for evaluation of back pain. Of note patient was admitted to the hospital with cellulitis of the left lower
extremity and discharged on 03/02 on Keflex. He says after returning home from the hospital his cellulitis symptoms improved but a few days ago started to have pain in his right low back. He denies any trauma or inciting event�he says that he laid
down on Saturday evening after returning home from the hospital (03/05) and when he woke up had pain in his right low back. He was seen in the ER 03/09 for the symptoms and had an x-ray which showed degenerative changes but no acute findings. He was
ultimately discharged at his request. He returns today because he feels his pain is poorly controlled. He reports aching pain in the lumbar region radiates more towards the right side and towards the right buttock/hip. No radicular symptoms down
the legs. He denies any numbness or weakness in the legs. He denies any saddle anesthesia. Denies any bowel or bladder incontinence. He has been ambulatory with a cane. He has not had fever or chills. He does follow with Dr. Colt Urrutia
for management of long-term back pain status post multiple spinal procedures. He has been taking his normal oxycodone but feels this is not adequate to control his symptoms.
Past History
Past History
ED Past Medical History: CVA and Other
ED Past Surgical History: Orthopedic and Tonsilectomy
Social History
Tobacco: Former smoker
Alcohol: None
Personal:
Living: with family
Family History
Family History: Other
Review of Systems
Review of Systems
All Other Systems: ROS reviewed and negative except as documented in HPI and ROS
Constitutional: Denies fever or chills
Cardiac: Denies chest pain
ABD/GI: Denies abdominal pain
Musculoskeletal: Reports back pain; Denies edema or neck pain
Neurological: Denies weakness or numbness
Phy Exam
Physical Exam
Physical Exam:
General: Awake, alert, oriented x3; laying recumbent in bed in no acute distress
Head: Normocephalic, atraumatic
Eyes: Conjunctiva normal
Throat: Airway intact, handling secretions
Neck: Trachea midline, supple without meningismus
Lungs: Breathing comfortably with no distress, no tachypnea and no hypoxia
Heart: Regular rate
Abd: Soft, non distended, nontender
Back: No midline tenderness in the thoracic or lumbar spine; mild tenderness in the right SI joint and in the paraspinal musculature of the lumbosacral region on the right; negative straight leg raise test bilaterally
Neuro: Cranial nerves grossly intact, speech fluid; motor and sensory intact proximally and distally in the lower extremities bilaterally, ambulatory with a cane in the ER
Skin: No rash in area of concern
Extremities: No edema in extremities, warm and well-perfused
Scores
Heart Failure Risk
Heart Failure Risk Score: Not Applicable
Heart Score for Chest Pain Patients
STEMI patient?: Not applicable
Withdrawal Assessment of Alcohol
Withdrawal Assessment Completed?: Not applicable
Course
Orders/Labs/Results
Orders:
Orders
03/15/25 09:33
CR Hip - RT w/wo Pel 2-3 Vw* Urgent
Comment:
Reason For Exam: right low back/hip pain
Include a pelvis x-ray?: Yes
03/15/25 09:35
Acetaminophen [Tylenol] 1,000 mg PO NOW STA
Lidocaine [Lidocaine 4% Patch] 1 patch TOPICAL ONCE ONE
Apply Lidocaine patch(s) to:: low back (right)
Oxycodone [Roxicodone] 10 mg PO NOW STA
Prednisone [Deltasone] 50 mg PO NOW STA
Vital Signs
Initial and Last Documented VS:
Initial Vital Signs
Temp Pulse Resp BP Pulse Ox
36.4 C 81 18 139/84 94
03/15/25 08:26 03/15/25 08:26 03/15/25 08:26 03/15/25 08:26 03/15/25 08:26
Last Documented Vital Signs
Temp Pulse Resp BP Pulse Ox
36.4 C 81 18 139/84 94
03/15/25 08:26 03/15/25 08:26 03/15/25 08:26 03/15/25 08:26 03/15/25 09:35
MDM/Problems Addressed
Differential Diagnosis Includes:
Degenerative disease/arthritis, muscular pain, radiculopathy; very low clinical suspicion for spinal emergency such as cauda equina, epidural hematoma, etc and in my judgment no indication for emergent workup for these diagnoses
MDM/Problems Addressed:
70-year-old male presents for evaluation of acute on chronic low back pain worse on the right side in the absence of clear inciting trauma. Vitals and exam as above. No red flag symptoms or exam findings today to suggest spinal emergency. He does
have reproducible tenderness on exam and overall clinical picture is consistent with musculoskeletal back pain and patient has a long history of such. Will plan to treat symptomatically. Will check x-ray of the hip as well for completeness as he
does report some radiation towards the right buttock. I did review his x-rays from 03/09 which showed degenerative disease but no acute abnormalities. Ultimately will need to follow-up long-term with his pain management doctor as well as a spine
surgeon.
X-ray of the hip shows no acute abnormalities on my review. On clinical reassessment patient does report some improvement in his pain with treatment here in the ER. I had a long discussion with the patient overall suspect that his symptoms are
likely related to degenerative disease which is chronic. He says he has seen a spinal surgeon at [facility]. I urged him to follow-up with his spinal surgeon as well as his pain management doctor. In the meantime can trial steroid course
advised to continue taking his home oxycodone, Tylenol and will prescribe Lidoderm patches. He feels comfortable with this plan. We spoke about return precautions and all questions were answered.
Chronic conditions affecting care:
Chronic back pain with multiple surgeries
*Radiology
Radiology exam reviewed: radiology read reviewed
*Pulse Oximetry
SaO2: 94
Oxygen Mode of Delivery: Room air
Patient hypoxic: no (94%)
*Critical Care Note
Total Time (30-74mins, 75-104mins- exclusive of procedures): Not Applicable
Data Reviewed
Source: patient and records
ED Attending Note
-
Portions of this chart may have been created with voice recognition software.� Occasional wrong word or��sound alike� substitutions may have occurred due to the inherent limitations of voice recognition software.
Discharge Plan
Departure
Patient Disposition: Home (Routine Discharge)
Date of Disposition: 03/15/25
Time of Disposition: 10:45
Patient with high blood pressure during this ER visit?: No
Discharge Problem:
Low back pain
Instructions: Low Back Pain (DC)
Prescriptions:
New
prednisone 10 mg Tablet
See Rx Instructions .ROUTE .COMPLEX Qty: 45 0RF
Rx Instructions:
Take By Mouth:
50 mg daily x3 days, 40 mg daily x3 days,
30 mg daily x3 days, 20 mg daily x3 days,
10 mg daily x3 days
lidocaine [Lidoderm] 5 % adhesive patch,medicated
1 patch topical DAILY Qty: 30 0RF
No Action
lisinopril 20 mg Tablet
10 mg PO DAILY
oxycodone-acetaminophen 10-325 mg Tablet
1 tab PO QID
metoprolol succinate 25 mg Tablet Extended Release 24 Hr
12.5 mg PO QPM
levothyroxine 112 mcg Tablet
112 mcg PO DAILY
ezetimibe 10 mg Tablet
10 mg PO QPM
omega 8-azo-vqv-fish oil [Fish Oil] 1,000 (120-180) mg Capsule
1 cap PO DAILY
Eliquis 5 mg Tablet
5 mg PO BID
cephalexin 500 mg tablet
500 mg PO Q6H 10 Days Qty: 40 0RF
Referrals:
UNKNOWN - PT DOES,NOT KNOW [Family Provider]
Activity Restrictions/Additional Instructions:
You should follow-up with your pain management doctor as well as your spine surgeon after your ER visit. If you feel your symptoms are worsening or if you develop any new symptoms including weakness or numbness in the legs, incontinence, fever or
any other acute issues that are concerning to you please return to the ER to be reassessed.
Thank you for visiting the Emergency Department at [facility].
1. Please schedule a follow up appointment as directed. Call first thing tomorrow morning to make an appointment.
2. If indicated, please take your medications as instructed and indicated on discharge paperwork.
3. If any of your symptoms do not improve, or persist, or become more severe within 6-12 hours, please return to the emergency department for further care.
4. Please return to the emergency department if you develop a headache, neck pain/stiffness, fever greater than 100.4F, chest pain, shortness of breath, persistent nausea, vomiting, slurred speech, difficulty walking, numbness/tingling, weakness,
signs of infection or any other symptoms that are worrisome to you.
Please call [phone] if you have any questions.
Interventions
Interventions:
*Risk Screen - Suicide Last Done: 03/15/25 08:26
*General Assessment Last Done: 03/15/25 08:26
*Neglect/Abuse Screening Last Done: 03/15/25 08:26
ED-Musculoskeletal Assessment Last Done: 03/15/25 10:02
Discharge Date and Time
Print Language: WELSH
[2025-03-15] MEDS: ROXICODONE 10 MG PO (09:50)
[2025-03-15] MEDS: DELTASONE 50 MG PO (09:50)
[2025-03-15] MEDS: TYLENOL 1000 MG PO (09:50)
[2025-03-15] MEDS: LIDOCAINE 4% PATCH 1 PATCH TOPICAL (09:51)
[2025-03-15 11:02] VITALS: BP 135/79
== END 2025-03-15 11:42 | disposition home or self-care (01) ==
LOC: EMR 08:24
PROVIDERS: EMERGENCY PHYSICIAN Emergency Medicine
DX: M54.50 Low back pain, unspecified (principal); G89.29 Other chronic pain; I48.91 Unspecified atrial fibrillation; Z86.73 Personal history of transient ischemic attack (TIA), and cerebral infarction without residual deficits; Z79.01 Long term (current) use of anticoagulants; Z87.891 Personal history of nicotine dependence
CPT/HCPCS: 99283; 73502

== ENCOUNTER 2025-03-21 01:30 | Observation (INO) | payer OTHER, SELFPAY ==
[2025-03-20 13:17] VITALS: BP 153/86
[2025-03-20 16:16] LABS: Hematocrit 37.0 % (39.0-52.0); Hemoglobin 12.1 g/dL (13.0-18.0); Mean Corp Hgb Conc. 32.7 g/dL (33.0-37.0); Mean Corpuscular Volume 89.6 fL (80.0-94.0); Nucleated Red Blood Cells % 0 % (-); Platelet Count 303 10^3/uL (130-400); Red Cell Dist. Width 13.4 % (11.5-14.5)
[2025-03-20 16:31] LABS: ALT (SGPT) 400 U/L (0-50); AST (SGOT) 306 U/L (17-59); Albumin 3.6 g/dl (3.5-5.0); Alkaline Phosphatase 93 U/L (38-126); Blood Urea Nitrogen 25 mg/dl (9-20); Calcium 9.5 mg/dl (8.4-10.2); Carbon Dioxide 29 mmol/L (22-30); Chloride 102 mmol/L (98-107); Glucose 118 mg/dl (70-99); Potassium 4.0 mmol/L (3.5-5.1); Sodium 134 mmol/L (135-145); Total Protein 6.7 g/dl (6.3-8.2); eGFR > 60.00
--- NOTE | 2025-03-20 16:48 | CM ---
Patient seen at bedside with on phone in ED. Patient stated that he lives in apartment with 10 steps to enter. Patient has a walker and a cane but only uses the cane. Patient states that he has aides set up by Dr. De Leon but states no only
MRI was approved by [facility]. Patient refuses placement in SNF or Acute Rehab due to not wanting to go to stay anywhere other than home. Patient has a casemanager September from [facility] but only has the contact information. CM reviewed possible referral
to [facility] for social media content specialist to review options and services and patient indicated that she would talk about it with social media content specialist from [facility]. Patient would like referral to [facility] for PT/OT and print room worker to assess options. Patient
indicated that she would like patient to go to placement but patient refusing. Patient uses [facility] for pharmacy needs. CM reviewed with PA concerns. CM will continue to follow for discharge planning needs.
Plan; home with [facility] referral for assessments at home.
[2025-03-20 18:24] VITALS: BMI 23.9
[2025-03-20 18:35] LABS: Ammonia < 9 umol/L (9-30)
[2025-03-20 18:47] VITALS: BP 149/100
[2025-03-20 19:24] LABS: Urine Character Clear (Clear)
[2025-03-20 19:37] LABS: Urine Red Blood Cell 0-2 /HPF (0-2); Urine Squamous Cell >30 /LPF (Few)
--- NOTE | 2025-03-20 20:16 | EDRN ---
Updated patient on ultrasound status, patient resting comfortably watching TV.
--- NOTE | 2025-03-20 21:55 | ED.GENMED ---
History of Present Illness
<Ines Reyes MD - Last Filed: 03/20/25 22:03>
General
Chief Complaint: Back Pain
Time Seen by Provider: 03/20/25 15:07
<Essie Merchant NP - Last Filed: 03/20/25 22:46>
General
Source: patient and spouse
Exam Limitations: none
Nursing documentation reviewed up to this point in time: agreed with
History of Present Illness
History of Present Illness:
Patient to ED with multiple complaints. According to spouse patient is having difficulties at home with ADL's. Unable to ambulate alone safely, possibly due to his ongoing backpain. states that he is becoming increasingly uncooperative at
home, forgetful, angry. SHe does not feel that she can care for him at home and does not feel that he is safe. She brought him to ED but then returned back to her work.
Past History
<Essie Merchant NP - Last Filed: 03/20/25 22:46>
Past History
ED Past Medical History: CVA and Other
ED Past Surgical History: Orthopedic and Tonsilectomy
Social History
Tobacco: Former smoker
Alcohol: None
Personal:
Living: with family
Family History
Family History: Other
Review of Systems
<Essie Merchant NP - Last Filed: 03/20/25 22:46>
Review of Systems
Allergies reviewed?: Yes
All Other Systems: ROS reviewed and negative except as documented in HPI and ROS
Constitutional: Reports no symptoms
EENT: Reports no symptoms
Respiratory: Reports no symptoms
Cardiac: Reports no symptoms
ABD/GI: Reports no symptoms
: Reports no symptoms
Musculoskeletal: Reports back pain (ongoing. )
Skin: Reports no symptoms
Neurological: Reports no symptoms
Psychiatric: Reports no symptoms
Phy Exam
<Essie Merchant NP - Last Filed: 03/20/25 22:46>
General Physical Exam
General Presentation: well appearing and no apparent distress
General age: appears stated age
General Skin: warm and dry
General Habitus: normal
General Mental: alert
Cardiovascular Exam
Cardiovascular Exam: regular rate/rhythm and no edema
Pulmonary Exam
Pulmonary Exam: lungs clear and no respiratory distress
Neurological Exam
Neurological Exam: alert, CN II-XII intact, no motor deficits, no sensory deficits and speech normal
Musculoskeletal Exam
Musculoskeletal Exam: full ROM and neuro vasc intact
Skin Exam
Skin Exam: normal color, warm/dry and no rash
Psychiatric Exam
Psychiatric Exam: normal mood/affect
Course
<Ines Reyes MD - Last Filed: 03/20/25 22:03>
Orders/Labs/Results
Orders:
Orders
03/20/25 15:52
Case Management Consult ONCE
Case Management Consult: Discharge Planning
03/20/25 15:53
CT Head W/o Iv Contrast Urgent
Comment:
Reason For Exam: altered mental status
03/20/25 16:08
Complete Blood Count/With Diff Urgent
Comprehensive Metabolic Panel Urgent
03/20/25 16:46
Case Management Consult ONCE
Case Management Consult: VN/Home Care
03/20/25 17:21
Add On- LAB Urgent
Tests Added?: ammonia
03/20/25 17:23
US Abdomen Complete/Upper Urgent
Comment:
Reason For Exam: elevated LFT's
03/20/25 18:16
Ammonia Urgent
03/20/25 18:51
Urinalysis Reflex To Culture Urgent
Date Specimen was Collected: 03/20/25
Time Specimen was Collected: 18:46
Urine Microscopic Reflex Cult Urgent
Abnormal Lab Results
03/20/25 03/20/25 03/20/25
16:08 18:16 18:51
RBC 4.13 L 10^6/uL
(4.70-6.10)
Hgb 12.1 L g/dL
(13.0-18.0)
Hct 37.0 L %
(39.0-52.0)
MCHC 32.7 L g/dL
(33.0-37.0)
Abs Immat Gran (auto) 0.4 H 10^3/uL
(0-0.05)
Absolute Neuts (auto) 8.1 H 10^3/uL
(1.4-6.5)
Absolute Lymphs (auto) 0.9 L 10^3/uL
(1.2-3.4)
Immature Gran % 3.6 H %
(0-0.5)
Neutrophils % 83.8 H %
(42.2-75.2)
Lymphocytes % 8.9 L %
(20.5-51.1)
Sodium 134 L mmol/L
(135-145)
BUN 25 H mg/dl
(9-20)
Glucose 118 H mg/dl
(70-99)
AST 306 H U/L
(17-59)
ALT 400 H U/L
(0-50)
Ammonia < 9 L umol/L
(9-30)
Urine Bacteria (Reflex) Few A
(Negative)
Urine Albumin (Reflex) 1+ A
(Neg - Trace)
03/20/25 16:08
03/20/25 16:08
Vital Signs
Initial and Last Documented VS:
Initial Vital Signs
Temp Pulse Resp BP Pulse Ox
98.5 F 75 16 153/86 98
03/20/25 13:17 03/20/25 13:17 03/20/25 13:17 03/20/25 13:17 03/20/25 13:17
Last Documented Vital Signs
Temp Pulse Resp BP Pulse Ox
98.5 F 75 16 119/70 98
03/20/25 13:17 03/20/25 21:56 03/20/25 21:56 03/20/25 21:56 03/20/25 22:02
<Essie Merchant, BRIAN - Last Filed: 03/20/25 22:46>
Orders/Labs/Results
Orders:
Orders
03/20/25 15:52
Case Management Consult ONCE
Case Management Consult: Discharge Planning
03/20/25 15:53
CT Head W/o Iv Contrast Urgent
Comment:
Reason For Exam: altered mental status
03/20/25 16:08
Complete Blood Count/With Diff Urgent
Comprehensive Metabolic Panel Urgent
03/20/25 16:46
Case Management Consult ONCE
Case Management Consult: VN/Home Care
03/20/25 17:21
Add On- LAB Urgent
Tests Added?: ammonia
03/20/25 17:23
US Abdomen Complete/Upper Urgent
Comment:
Reason For Exam: elevated LFT's
03/20/25 18:16
Ammonia Urgent
03/20/25 18:51
Urinalysis Reflex To Culture Urgent
Date Specimen was Collected: 03/20/25
Time Specimen was Collected: 18:46
Urine Microscopic Reflex Cult Urgent
Abnormal Lab Results
03/20/25 03/20/25 03/20/25
16:08 18:16 18:51
RBC 4.13 L 10^6/uL
(4.70-6.10)
Hgb 12.1 L g/dL
(13.0-18.0)
Hct 37.0 L %
(39.0-52.0)
MCHC 32.7 L g/dL
(33.0-37.0)
Abs Immat Gran (auto) 0.4 H 10^3/uL
(0-0.05)
Absolute Neuts (auto) 8.1 H 10^3/uL
(1.4-6.5)
Absolute Lymphs (auto) 0.9 L 10^3/uL
(1.2-3.4)
Immature Gran % 3.6 H %
(0-0.5)
Neutrophils % 83.8 H %
(42.2-75.2)
Lymphocytes % 8.9 L %
(20.5-51.1)
Sodium 134 L mmol/L
(135-145)
BUN 25 H mg/dl
(9-20)
Glucose 118 H mg/dl
(70-99)
AST 306 H U/L
(17-59)
ALT 400 H U/L
(0-50)
Ammonia < 9 L umol/L
(9-30)
Urine Bacteria (Reflex) Few A
(Negative)
Urine Albumin (Reflex) 1+ A
(Neg - Trace)
03/20/25 16:08
03/20/25 16:08
Vital Signs
Initial and Last Documented VS:
Initial Vital Signs
Temp Pulse Resp BP Pulse Ox
98.5 F 75 16 153/86 98
03/20/25 13:17 03/20/25 13:17 03/20/25 13:17 03/20/25 13:17 03/20/25 13:17
Last Documented Vital Signs
Temp Pulse Resp BP Pulse Ox
98.5 F 75 16 119/70 98
03/20/25 13:17 03/20/25 21:56 03/20/25 21:56 03/20/25 21:56 03/20/25 22:02
<Essie Merchant NP - Last Filed: 03/20/25 22:46>
*Radiology
Radiology exam reviewed: radiology read reviewed
*Pulse Oximetry
SaO2: 98
Oxygen Mode of Delivery: Room air
Patient hypoxic: no
*Critical Care Note
Total Time (30-74mins, 75-104mins- exclusive of procedures): Not Applicable
<Essie Merchant NP - Last Filed: 03/20/25 22:46>
Update Note
Update Note:
Patient to ED with initial complaint of severe low back pain. He has not had any back issues while in ED. reports that he has become increasingly angry, forgetful, unsteady at home. SHe does not feel that she can care for him safely at this
point. She reports that he is unsafe ambulating on own at home. SHe feels that he needs inpatient rehab. Case management contacted and in to see pateint. According to case aide, patient declined inpatient rehab. Will admit tonight for PT
evaluation. Case management will see again in AM.
ED Attending Note
<Ines Reyes MD - Last Filed: 03/20/25 22:03>
ED Attending Note
Patient seen and examined by attending physician: Yes
I performed the substantive portion of visit, reviewed & personally made and approve the management plan that is documented in note by myself or SHASHA.: Yes
ED Attending Note:
. Lungs are clear. Patient is able to ambulate steadily. Patient appears comfortable
<Essie Merchant NP - Last Filed: 03/20/25 22:46>
-
Portions of this chart may have been created with voice recognition software.� Occasional wrong word or��sound alike� substitutions may have occurred due to the inherent limitations of voice recognition software.
Discharge Plan
Departure
Patient Disposition: Admit
Date of Disposition: 03/20/25
Time of Disposition: 22:06
Presentation/result/management discussed w/ accepting MD/DO: Hospitalist
Patient with high blood pressure during this ER visit?: No
Condition: Fair
Covid-19: Not Applicable
Discharge Problem:
Ambulatory dysfunction
Prescriptions:
No Action
lisinopril 20 mg Tablet
10 mg PO DAILY
oxycodone-acetaminophen 10-325 mg Tablet
1 tab PO QID
metoprolol succinate 25 mg Tablet Extended Release 24 Hr
12.5 mg PO QPM
levothyroxine 112 mcg Tablet
112 mcg PO DAILY
ezetimibe 10 mg Tablet
10 mg PO QPM
omega 5-xkp-rem-fish oil [Fish Oil] 1,000 (120-180) mg Capsule
1 cap PO DAILY
Eliquis 5 mg Tablet
5 mg PO BID
rosuvastatin 40 mg Tablet
40 mg PO DAILY
Referrals:
Annie Baez PA-C [Family Provider, Family Practice]
Interventions
Interventions:
*Risk Screen - Suicide Last Done: 03/20/25 13:20
*General Assessment Last Done: 03/20/25 18:20
*Neglect/Abuse Screening Last Done: 03/20/25 13:20
*ED- Fall Risk Assessment Last Done: 03/20/25 18:20
*ED COVID-19 Vaccine History Last Done: 03/20/25 18:20
*ED Influenza Vaccine History Last Done: 03/20/25 18:20
ED-Musculoskeletal Assessment Last Done: 03/20/25 18:20
Discharge Date and Time
Print Language: SAUDI ARABIAN
Musculoskeletal Injury Exam
<Essie Merchant NP - Last Filed: 03/20/25 22:46>
Musculoskeletal Injury Exam
Bilateral Lower Back:
Pain with Movement?: Moderate
Tender to palpation?: None
Soft tissue swelling?: None
External deformity and angulation?: None
Joint effusion?: None
Contusion?: None
Hematoma-local bleeding into tissue?: None
Crepitus with movement?: No
Joint instability?: No
Malalignment/deformity?: No
Range of motion: Full
Distal skin color and temperature: normal-warm & good color
Capillary Refill: normal
Normal distal neurovascular exam?: Yes
[2025-03-20 21:56] VITALS: BP 119/70
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
--- NOTE | 2025-03-20 23:48 | EDRN ---
Emptied patients urinal for him and updated him on his admission, call shala in reach, will continue to monitor
--- NOTE | 2025-03-21 01:15 | EDRN ---
Patient on the call last he is so uncomfortable in the stretcher, still waiting on orders and a bed at this time, placed patient into a hospital bed for comfort, patient immediately reports his back discomfort is improved, warm blankets provided for
patient as well and lights turned down.
[2025-03-21 01:30] VITALS: BP 170/91
[2025-03-21 03:10] VITALS: BP 152/103; BMI 24.1
[2025-03-21 04:01] VITALS: BMI 24.1
--- NOTE | 2025-03-21 04:19 | PTCARENOTE ---
Receive pt from ER. Pt alert oriented X3, but forgetful. Pt assist X1 w/single point cane to bed. Pt oriented to the room, call last within reach, bed alarm in place for pt safety. Pt denies any pain at this time. JX=666/103, HR=66, RR=18, T=97.4,
SpO2=96% on RA. Pt states that 'I don't want to come to this hospital' and 'want to see the doctor in the morning and then leave'. Pt has some of his meds with him, but refuses to give them to the nurse. Will let the know so she can take pt's
meds home. Will continue to monitor the pt.
[2025-03-21 04:45] VITALS: BP 136/96
[2025-03-21 05:52] LABS: Hematocrit 35.1 % (39.0-52.0); Hemoglobin 11.9 g/dL (13.0-18.0); Mean Corp Hgb Conc. 33.9 g/dL (33.0-37.0); Mean Corpuscular Volume 90.2 fL (80.0-94.0); Platelet Count 270 10^3/uL (130-400); Red Cell Dist. Width 13.3 % (11.5-14.5)
[2025-03-21 06:21] LABS: ALT (SGPT) 297 U/L (0-50); AST (SGOT) 162 U/L (17-59); Albumin 3.2 g/dl (3.5-5.0); Alkaline Phosphatase 80 U/L (38-126); Blood Urea Nitrogen 20 mg/dl (9-20); Calcium 9.0 mg/dl (8.4-10.2); Carbon Dioxide 28 mmol/L (22-30); Chloride 102 mmol/L (98-107); Estimated Creatinine Clearance 78 ml/min; Glucose 90 mg/dl (70-99); Potassium 4.1 mmol/L (3.5-5.1); Sodium 134 mmol/L (135-145); Total Protein 5.9 g/dl (6.3-8.2); eGFR > 60.00
[2025-03-21 07:00] VITALS: BP 142/82
[2025-03-21] MEDS: ROXICODONE 5 MG PO ×2 (07:20→11:43)
[2025-03-21] MEDS: SYNTHROID 112 MCG PO (07:20)
[2025-03-21] MEDS: ZESTRIL 10 MG PO (08:43)
[2025-03-21] MEDS: ELIQUIS 5 MG PO (08:43)
[2025-03-21 09:36] VITALS: BP 142/84; PULSE 74; O2SAT 99
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
[2025-03-21 12:41] VITALS: BP 168/98
--- NOTE | 2025-03-21 12:44 | PTCARENOTE ---
Took pt vitals before dc, BP 168/98. Pt is very angry and anxious. Pt has no symptoms, AM BP medications administered. Notified MD WHITNEY okay with continuing with dc. Educated pt to track BP at home and follow up with PCP. Pt has no further complaints
at this time. to transport patient home.
--- NOTE | 2025-03-21 13:00 | CM ---
Patient has been medically cleared for discharge to home with JUAN PABLO RN, PT/OT services. transported home.
== END 2025-03-21 12:47 | disposition home health service (06) ==
LOC: 4 EAST ACU 01:30
PROVIDERS: Internal Medicine; Nurse Practitioner; ADMITTING PHYSICIAN Internal Medicine; ATTENDING PHYSICIAN Internal Medicine; EMERGENCY PHYSICIAN Emergency Medicine; FAMILY PHYSICIAN Physician Assistant Medical
DX: M54.50 Low back pain, unspecified (principal); R41.82 Altered mental status, unspecified; R62.7 Adult failure to thrive; R26.2 Difficulty in walking, not elsewhere classified; I95.9 Hypotension, unspecified; G89.29 Other chronic pain; R79.89 Other specified abnormal findings of blood chemistry; I10 Essential (primary) hypertension; E03.9 Hypothyroidism, unspecified; E78.5 Hyperlipidemia, unspecified; I48.0 Paroxysmal atrial fibrillation; Z75.1 Person awaiting admission to adequate facility elsewhere; Z87.891 Personal history of nicotine dependence; Z86.73 Personal history of transient ischemic attack (TIA), and cerebral infarction without residual deficits; Z79.890 Hormone replacement therapy; Z79.01 Long term (current) use of anticoagulants; Z79.891 Long term (current) use of opiate analgesic; Z88.8 Allergy status to other drugs, medicaments and biological substances
CPT/HCPCS: 70450; 76700; 80048; 80053; 80076; 81003; 81015; 82140; 85025; 85027; 97162; 97530; 99285; G0378

== ENCOUNTER 2025-03-25 15:46 | Observation (INO) | payer OTHER, SELFPAY ==
[2025-03-25 11:50] VITALS: BP 158/103; BMI 24.5
--- NOTE | 2025-03-25 12:26 | ED.GENMED ---
History of Present Illness
General
Chief Complaint: Back Pain
Source: patient
Exam Limitations: none
Time Seen by Provider: 03/25/25 12:08
History of Present Illness
History of Present Illness:
70-year-old male presents complaining of severe lower back pain. He was admitted to this hospital for ambulatory dysfunction and back pain and discharged home 4 days ago. He has been receiving home health and physical therapy. The pain is
increasing. He denies a fever. He denies bowel or bladder dysfunction. He denies any perianal anesthesia. The pain does not radiate to his back. He is on Percocet 10 mg 3 times a day. He sees pain management is due for an MRI in April 08.
He is by himself for the good portion of the day. He has a history of A-fib on Eliquis.
Past History
Past History
ED Past Medical History: CVA and Other
ED Past Surgical History: Orthopedic and Tonsilectomy
Social History
Tobacco: Former smoker
Alcohol: None
Personal:
Living: with family
Family History
Family History: Other
Phy Exam
Physical Exam
Physical Exam:
General: Well-appearing male no acute respiratory distress
HEENT: Normal cephalic atraumatic
Heart: Regular rate and rhythm no murmur
Lungs: Clear no wheeze
Abdomen is soft nontender nondistended
Musculoskeletal exam: Well-healed surgical incision over the midline of the lumbar spine. He is mildly diffusely tender about the lumbar spine.
Neurologic exam: Alert and oriented good strength and sensation to the lower extremities. Negative straight leg raise
Course
Orders/Labs/Results
Orders:
Orders
03/25/25 12:37
CRP [C-Reactive Protein] Urgent
Complete Blood Count/With Diff Urgent
Comprehensive Metabolic Panel Urgent
Sed Rate [Erythrocyte Sed Rate] Urgent
03/25/25 13:24
diazePAM [Valium Injection] 5 mg IV NOW STA
Abnormal Lab Results
03/25/25
12:37
RBC 3.95 L 10^6/uL
(4.70-6.10)
Hgb 12.1 L g/dL
(13.0-18.0)
Hct 36.2 L %
(39.0-52.0)
Abs Immat Gran (auto) 0.1 H 10^3/uL
(0-0.05)
Absolute Monos (auto) 0.7 H 10^3/uL
(0.1-0.6)
Immature Gran % 0.9 H %
(0-0.5)
Lymphocytes % 14.1 L %
(20.5-51.1)
ESR 46 H mm/hour
(0-20)
Sodium 133 L mmol/L
(135-145)
Glucose 101 H mg/dl
(70-99)
ALT 124 H U/L
(0-50)
C-Reactive Protein 13.20 H mg/L
(0.0-10.00)
Total Protein 6.2 L g/dl
(6.3-8.2)
Albumin 3.2 L g/dl
(3.5-5.0)
03/25/25 12:37
03/25/25 12:37
Vital Signs
Initial and Last Documented VS:
Initial Vital Signs
Temp Pulse Resp BP Pulse Ox
98 F 63 16 158/103 99
03/25/25 11:50 03/25/25 11:50 03/25/25 11:50 03/25/25 11:50 03/25/25 11:50
Last Documented Vital Signs
Temp Pulse Resp BP Pulse Ox
98 F 61 16 148/95 99
03/25/25 11:50 03/25/25 14:21 03/25/25 14:21 03/25/25 14:21 03/25/25 14:21
MDM/Problems Addressed
Differential Diagnosis Includes:
Patient with worsening and severe lower back pain without radiation. Consider degenerative disc disease versus muscular spasm versus radiculopathy. No red flags to suggest cauda equina. No fever to suggest infectious source.
*Pulse Oximetry
SaO2: 99
Oxygen Mode of Delivery: Room air
Patient hypoxic: no
*Critical Care Note
Total Time (30-74mins, 75-104mins- exclusive of procedures): Not Applicable
Update Note
Update Note:
Patient reevaluated still in significant pain. At this point, 4 days after discharge, he is struggling more at home secondary to his back pain. He has minimal help. Not safe for discharge. Will keep in hospital for further work with physical
therapy and consideration for placement
ED Attending Note
-
Portions of this chart may have been created with voice recognition software.� Occasional wrong word or��sound alike� substitutions may have occurred due to the inherent limitations of voice recognition software.
Discharge Plan
Departure
Patient Disposition: Admit
Date of Disposition: 03/25/25
Time of Disposition: 14:33
Presentation/result/management discussed w/ accepting MD/DO: Hospitalist
Discharge Problem:
Back pain
Prescriptions:
No Action
lisinopril 20 mg Tablet
10 mg PO DAILY
oxycodone-acetaminophen 10-325 mg Tablet
1 tab PO QID
metoprolol succinate 25 mg Tablet Extended Release 24 Hr
12.5 mg PO QPM
levothyroxine 112 mcg Tablet
112 mcg PO DAILY
ezetimibe 10 mg Tablet
10 mg PO QPM
omega 7-oyu-ytf-fish oil [Fish Oil] 1,000 (120-180) mg Capsule
1 cap PO DAILY
Eliquis 5 mg Tablet
5 mg PO BID
rosuvastatin 40 mg Tablet
40 mg PO DAILY
Referrals:
Walter Whatley DO [Family Provider, Family Practice]
Interventions
Interventions:
*Risk Screen - Suicide Last Done: 03/25/25 11:52
*General Assessment Last Done: 03/25/25 11:52
*Neglect/Abuse Screening Last Done: 03/25/25 11:51
*ED- Fall Risk Assessment Last Done: 03/25/25 11:51
*ED COVID-19 Vaccine History Last Done: 03/25/25 11:50
*ED Influenza Vaccine History Last Done: 03/25/25 11:50
ED-Musculoskeletal Assessment Last Done: 03/25/25 11:51
Discharge Date and Time
Print Language: YORUBA
[2025-03-25 12:44] LABS: Hematocrit 36.2 % (39.0-52.0); Hemoglobin 12.1 g/dL (13.0-18.0); Mean Corp Hgb Conc. 33.4 g/dL (33.0-37.0); Mean Corpuscular Volume 91.6 fL (80.0-94.0); Nucleated Red Blood Cells % 0 % (-); Platelet Count 208 10^3/uL (130-400); Red Cell Dist. Width 13.9 % (11.5-14.5)
[2025-03-25 12:57] LABS: ALT (SGPT) 124 U/L (0-50); AST (SGOT) 36 U/L (17-59); Albumin 3.2 g/dl (3.5-5.0); Alkaline Phosphatase 67 U/L (38-126); Blood Urea Nitrogen 14 mg/dl (9-20); Calcium 9.1 mg/dl (8.4-10.2); Carbon Dioxide 26 mmol/L (22-30); Chloride 105 mmol/L (98-107); Estimated Creatinine Clearance 87 ml/min; Glucose 101 mg/dl (70-99); Potassium 4.7 mmol/L (3.5-5.1); Sodium 133 mmol/L (135-145); Total Protein 6.2 g/dl (6.3-8.2); eGFR > 60.00
[2025-03-25 13:00] LABS: C-Reactive Protein 13.20 mg/L (0.0-10.00)
[2025-03-25] MEDS: VALIUM INJECTION 5 MG IV (13:31)
[2025-03-25 14:21] VITALS: BP 148/95
--- NOTE | 2025-03-25 15:37 | HPS.HSE ---
Family Physician
-
Family Physician: Walter Whatley
Chief Complaint
-
lower back pain
History of Present Illness
70-year-old male past medical history of paroxysmal atrial fibrillation on Eliquis, CVA, hypothyroidism, hypertension, chronic back pain, presenting with severe lower back pain. Patient was recently admitted from 03/20 to 03/21 for ambulatory
dysfunction and lower back pain. Patient was discharged 4 days ago. Patient has been receiving home health and physical therapy with worsening lower back pain. No fever. No bowel or bladder incontinence. No perianal anesthesia. Patient sees
pain management due for MRI on April 08.
He states that he lives with his girlfriend for 30 years but he does not want to live with her anymore because she is an alcoholic.
He recently had a skin infection of his left foot ankle treated with antibiotics. He was also apparently treated for steroids for his lower back pain.
Patient denies smoking or alcohol use.
Medical History
Past Medical History
Past Medical History: Reports Other (paroxysmal atrial fibrillation on Eliquis, CVA, hypothyroidism, hypertension, chronic back pain)
Past Surgical History: Reports None
Social History
Tobacco: Non-smoker
Alcohol: None
Drug: None
Family History
Family History: Not pertinent
Allergies / Home Medications
Allergies reflects when Allergies were last updated in [facility].
Home Medications with original date entered in [facility]
Allergy/Medication List:
Allergies
Allergy/AdvReac Type Severity Reaction Status Date / Time
Mafzutz-PRO-JmI Reductase Allergy Unknown Hives Verified 03/15/25 08:25
Inhibitor (Rysdiqm-Tfy-Wyw
Reductase Inhibitor)
Home Medications
apixaban 5 mg tablet (Eliquis) 5 mg PO BID Blood Clot Prevention/Tx 02/03/25
ezetimibe 10 mg tablet 10 mg PO QPM High Cholesterol 02/03/25
levothyroxine 112 mcg tablet 112 mcg PO DAILY Thyroid 02/03/25
lisinopril 20 mg tablet 10 mg PO DAILY Blood Pressure 02/03/25
metoprolol succinate 25 mg tablet,extended release 24 hr 12.5 mg PO QPM Blood Pressure 02/03/25
omega 6-vvv-iqg-fish oil 1,000 mg (120 mg-180 mg) capsule (Fish Oil) 1 cap PO DAILY Supplement 02/03/25
oxycodone-acetaminophen 10 mg-325 mg tablet 1 tab PO QID Pain 02/03/25
rosuvastatin 40 mg tablet 40 mg PO DAILY 03/20/25
Held on 03/21/25. Instructions: Hold until your liver function tests have returned to normal
Review of Systems
-
History Source: Patient
A 12 point ROS was completed and negative except as noted: Yes
Constitutional: Reports No Symptoms
EENT: Reports No Symptoms
Respiratory: Reports No Symptoms
Cardiac: Reports No Symptoms
Abdomen/GI: Reports No Symptoms
: Reports No Symptoms
Musculoskeletal: Reports See HPI
Skin: Reports No Symptoms
Neurological: Reports No Symptoms
Endocrine: Reports No Symptoms
Hematologic/Lymphatic: Reports No Symptoms
Psych: Reports No Symptoms
Physical Exam
Vital Signs
Vital Signs
Temp Pulse Resp BP Pulse Ox
98 F 61 16 148/95 99
03/25/25 11:50 03/25/25 14:21 03/25/25 14:21 03/25/25 14:21 03/25/25 14:21
Physical Exam
General: Well Developed, Well Nourished and No Apparent Distress
HEENT: NormoCephalic, Moist mucous membranes and Atraumatic
Respiratory: Clear
Cardiac: S1/S2 and Regular Rhythm; No Murmur or Rub
GI: Soft, Non Tender, Non Distended and Normal Bowel Sounds; No Organomegaly
Rectal: Deferred by Provider
Musculoskeletal: No Clubbing, No Cyanosis and No Edema
Skin: No Rash
Neuro: Nonfocal/grossly intact
Laboratory Results
-
03/25/25 12:37
03/25/25 12:37
Laboratory Results
Total Bilirubin 1.0 mg/dl (0.2-1.3) 03/25/25 12:37
AST 36 U/L (17-59) 03/25/25 12:37
ALT 124 U/L (0-50) H 03/25/25 12:37
Alkaline Phosphatase 67 U/L (38-126) 03/25/25 12:37
Data Reviewed
-
Lab Data: Labs Reviewed by me
Old Records: Reviewed
Impression/Plan
-
IMPRESSION:
PLAN:
# Worsening of chronic lower back pain
- Continue Percocet, Valium
-Dilaudid for severe pain
-Lidocaine patch
- Has outpatient follow-up with pain management for MRI due April 08
- PT, OT, case management
Paroxysmal atrial fibrillation
- Continue Eliquis
- Continue metoprolol
History of CVA
Hypothyroidism
- Continue levothyroxine
Essential hypertension
- Continue lisinopril
Hyperlipidemia
- Continue Zetia
Full code
DVT prophylaxis�Eliquis
Regular diet
[2025-03-25] MEDS: DILAUDID 0.25 MG IV (17:14)
[2025-03-25 17:58] VITALS: BP 169/103; BMI 23.9
[2025-03-25] MEDS: TYLENOL 325 MG PO ×2 (18:16→21:17)
[2025-03-25] MEDS: ZETIA 10 MG PO (18:16)
[2025-03-25] MEDS: TOPROL XL 12.5 MG PO (18:17)
[2025-03-25] MEDS: ROXICODONE 10 MG PO ×2 (18:18→21:17)
[2025-03-25] MEDS: LIDOCAINE 4% PATCH 1 PATCH TOPICAL (18:19)
[2025-03-25 18:51] VITALS: BMI 23.9
[2025-03-25] MEDS: ELIQUIS 5 MG PO (20:25)
[2025-03-25] MEDS: REMOVE LIDOCAINE PATCH 1 PATCH REMOVE (20:25)
[2025-03-25 23:00] VITALS: BP 166/104
[2025-03-25 23:09] VITALS: BP 168/90
[2025-03-26] MEDS: DILAUDID 0.25 MG IV (02:08)
[2025-03-26] MEDS: VALIUM INJECTION 5 MG IV (03:12)
[2025-03-26] MEDS: TORADOL 15 MG IV (03:54)
--- NOTE | 2025-03-26 04:10 | W.PN.UPDATE ---
Addendum entered and electronically signed by MICHELLE Ny 03/26/25 06:23:
0600 RN reports pt called friend to pick him up now. Previously discussed with him the ramifications of leaving against AMA including but not limited to potential falls, injury from falling, frequent visits back to hospital. Pt with full capacity to
make decisions. I have tried to make him as comfortable as possible.
Original Note:
Update Note
Progress Note Update
0300 RN reports pt wanting to leave because 'we are not doing anything for him.'
Pt came back (has been seen in ED 2 times recently and admitted overnight once) for ongoing complaints of back pain. He was just admitted overnight. I explained that its an ongoing process to try and treat his pain. He complains more of right hip
pain. States he has had a THR in past. He feels this it bothering him the most and he cannot get comfortable. He feels a protrusion from hip area. This was also felt my this examiner. PT stated valium may have help better that was given in ED. I
convinced pt to stay until more workup can be done because he likely will end up back to hospital again.
will order valium iv 5mg x1. increase dilaudid. once dose of toradol and right hip xray in am.
== END 2025-03-26 07:02 | disposition left against medical advice (07) ==
LOC: 4 WEST ACU 15:46
PROVIDERS: Physician Assistant; ADMITTING PHYSICIAN Hospitalist; EMERGENCY PHYSICIAN Emergency Medicine; FAMILY PHYSICIAN Family Medicine
DX: G89.29 Other chronic pain (principal); M54.50 Low back pain, unspecified; I48.0 Paroxysmal atrial fibrillation; I10 Essential (primary) hypertension; E03.9 Hypothyroidism, unspecified; E78.5 Hyperlipidemia, unspecified; Z53.29 Procedure and treatment not carried out because of patient's decision for other reasons; Z79.890 Hormone replacement therapy; Z79.899 Other long term (current) drug therapy; Z79.01 Long term (current) use of anticoagulants; Z86.73 Personal history of transient ischemic attack (TIA), and cerebral infarction without residual deficits; Z87.891 Personal history of nicotine dependence
CPT/HCPCS: 80053; 85025; 85652; 86140; 96374; 99285; G0378